=== PATIENT | female | born 1935 | race Caucasian/White ===

== ENCOUNTER → 2017-07-19 | Outpatient (CLI) | payer OTHER ==
[~2017-07-19] VITALS: Ht 165.1 cm; Wt 82.6 kg
[~2017-07-19] MED LIST: ASPIR 8181 MG PO; ATENOLOL 100MG100 MG PO; ATENOLOL 50MG T50 M1 PO; ATORVASTATIN CA80 MG PO; AZELASTINE137 MCG/0. NS; COUMADIN 5 MG TA5 M1 PO; LEVOTHYROXINE25 MCG PO; LIORESAL 10 MG10 MG PO; LIPITOR80 MG PO; OMEPRAZOLE40 MG PO; OXYCODONE HCL 55 MG PO; PACERONE 200 M200 M1 PO; PERCOCET 5-3251 EACH PO; VITAMIN D1000 UNI1 PO; ZANTAC 150MG T150 MG PO
--- NOTE | ~2017-07-19 | HPC ---
[facility] [place] [address] PAIN MANAGEMENT CONSULTATION Name: SANAZ VALERIO Room #: REG NORRIS CheryLenoraHansLenora#: [id number] Admission: 07/19/17 Attend Phys: Arnulfo Huber MD Discharge: Date of : 35 Report #: [id number] THIS REPORT FOR: //name// CC: Arnulfo Ramon MD DATE OF SERVICE: 07/19/2017 CHIEF COMPLAINT: Chronic neck pain. HISTORY OF PRESENT ILLNESS: The patient is here today in the clinic at the request of Dr. Greg Ramon to discuss her current medication management. She is somewhat concerned about her use of oxycodone because of what she has heard on the news. 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 She is living with her daughter. Previously living in [place], she moved here 2 years ago. In 2011, she was injured during the course of the knee surgery. She says that they dropped her head creating an injury to her neck. She complains of chronic pain in her neck and into her occiput. The pain radiates down into the trapezius. She has limited range of motion of the neck ____ causing pain in the level of 9-10/10. She describes it as gnawing, pulling, cramping, aching, and intermittent with movement. The patient was made blind also she says as a result of anesthesia that she was given during the same surgery. She did not go into details. She has rheumatoid arthritis diagnosed in 1959 and has recently been associated with Dr. Thomas who has been giving her Actemra injections once a month. She says that this helps with her pain and asked specifically which joints are involved and which are helped most, she says I am helped all over. The patient has atrial fibrillation and chronic kidney disease. She has a history of myocardial infarction. She should not be on anti-inflammatory drugs per her tax form preparer. MEDICATIONS: Currently taking Coumadin, Nexium, vitamin D, chloromycetin, amiodarone, Levoxyl, thyroid, cholesterol medication and oxycodone 5 mg twice a day with good improvement following her pain. SOCIAL HISTORY: Denies use of tobacco or alcohol. Living with her daughter. 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 She is retired. PAST SURGICAL HISTORY: Positive for three previous knee replacements, cataract surgery and ovarian cyst resection. She had a cholecystectomy and appendectomy [facility] [address] [place] [address] PAIN MANAGEMENT CONSULTATION Name: SANAZ VALERIO Room #: REG NORRIS AlmonteLenora#: [id number] Admission: 07/19/17 Attend Phys: Arnulfo Huber MD Discharge: Date of : 35 Report #: [id number] in the distant past. She has suffered with hypertension, heart disease, gastritis and osteoarthritis. She reports to me that she has chronic kidney disease stage 3. I do not have any of her glomerular filtration rate numbers or creatinine. She has been told not to take anti-inflammatory drugs. REVIEW OF SYSTEMS: Completed by the patient. I went over each of the positive responses including chest pain, nocturia and constipation. We discussed opioid related constipation. PHYSICAL EXAMINATION: GENERAL: The patient is pleasant and sharp female. She walks with a red tip white cane. VITAL SIGNS: Blood pressure 130/75, heart rate 52 and respirations 20. Her BMI is 30.3. 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 Mucous membranes are moist. Mouth is moist. She has multiple dental caries. NECK: Painful in all movements except for neck flexion. Extension, lateral tilt and rotational movements in all planes otherwise reproduce crepitus and pain in the occiput and radiating down the neck into the trapezius. She has localized myofascial pain and tenderness throughout the neck and the upper back. There is no scarring present. CHEST: Clear. CARDIAC: Rhythm was irregularly irregular. ABDOMEN: Soft. IMPRESSION: 1. Chronic intractable pain related to severe osteoarthritis and rheumatoid arthritis. 2. Use of opioid medication for management of chronic intractable pain. RECOMMENDATIONS: I fully support the use of modest doses of oxycodone for the patient. I think Dr. Ramon is providing this appropriately. We discussed the CDC guideline which is directing physicians to use medications wisely, not to discontinue using opioids altogether. If we calculate her current dose of oxycodone at 10 mg per day that is morphine milligram equivalency of 15. I explained to her where this sits in the guidelines. This is a low dose. She should safeguard her medications and she understands the importance of this. She should receive her medication from her primary care physician and no one else. We talked about perhaps increasing her dose to 15. This would still leave her morphine milligram equivalent at 22. As long as she has no side effects and provides her improvement in pain, I think this is the way I would manage her discomforts. She is not a good candidate for any sort of injection therapy. [facility] [address] [place] [address] PAIN MANAGEMENT CONSULTATION Name: SANAZ VALERIO Room #: DIANA CheryOly#: [id number] Admission: 07/19/17 Attend Phys: Arnulfo Huber MD Discharge: Date of : 35 Report #: [id number] Thank you for referral. She is not scheduled back to our clinic. By: [id number] Arnulfo Huber MD /nt
[2017-07-19 15:17] VITALS: BP 130/75
== END ==
LOC: PAIN 07:24
DX: G89.29 Other chronic pain (principal); M19.90 Unspecified osteoarthritis, unspecified site; M06.9 Rheumatoid arthritis, unspecified; F11.90 Opioid use, unspecified, uncomplicated

== ENCOUNTER 2018-02-02 15:18 | Inpatient (IN) | payer OTHER ==
[~2018-02-02] VITALS: Ht 165.1 cm; Wt 86.3 kg
--- NOTE | ~2018-02-02 | P ---
[facility] [place] [address] PROCEDURE REPORT Name: SANAZ VALERIO Room #: 450-P [facility] IN M.R.#: [id number] Admission: 02/02/18 Attend Phys: Greg Ramon MD Discharge: Date of : 35 Report #: [id number] THIS REPORT FOR: //name// CC: Greg Ramon MD BRIEF HISTORY: The patient is an 83-year-old woman with solid food dysphagia. She complains of reflux, which she describes as belching. A recent barium study suggested presbyesophagus. PREOPERATIVE DIAGNOSIS: Solid food dysphagia and reflux disease. POSTOPERATIVE DIAGNOSES: 1. Moderate erythematous antral gastritis. 2. Moderate Hoa esophagitis. 3. Dysphagia. MEDICATIONS: Deep sedation with propofol per anesthesia. SPECIMENS: 1. Biopsies of gastritis. 2. Brushing of esophagus to rule out Hoa. ESTIMATED BLOOD LOSS: 3 mL. PROCEDURE: EGD with biopsy and dilation of the esophagus over a guidewire. FINDINGS: Prior to propofol sedation, the procedure of upper endoscopy was discussed with the patient as well as potential risks and its complications. She indicates she understands and desires to proceed. DESCRIPTION OF PROCEDURE: With the patient in the left lateral decubitus position, the Olympus video endoscope was inserted into the cervical esophagus and advanced under direct vision to the esophagus. Examination of this organ through its entire length revealed intact esophageal mucosa; however, there was noted to be whitish plaque material throughout the esophagus consistent with a Hoa esophagitis. It is noted she does take steroids for her rheumatoid arthritis. Brushings were obtained. The intervening mucosa was unremarkable and intact. No ulcerations or erosions were seen. No neoplastic lesions were seen. Corea's mucosa was not seen within the limitations of the Hoa esophagitis. The scope was advanced in the stomach, which was examined on end view as well as retroflexed views. The stomach was empty. No retained solids or liquids in the stomach. Upon retroflexion, no abnormalities were seen. No mass lesions were seen in the cardia. Examination of the distal stomach revealed a linear erythematous gastritis to a moderate degree. No ulcers were seen. Biopsy was taken of the gastritis. The pylorus, duodenal bulb and postbulbar duodenal sweep were all inspected and noted to be within normal [address] [address] PROCEDURE REPORT Name: SANAZ VALERIO Room #: 450-P [facility] IN M.R.#: [id number] Admission: 02/02/18 Attend Phys: Greg Ramon MD Discharge: Date of : 35 Report #: [id number] limits. At that point, the scope was withdrawn. As we withdrew the scope, a guidewire was inserted into the duodenum and the scope was withdrawn over the wire. We then passed a 40-Hungarian Savary dilator over the wire without difficulty. The patient tolerated the procedure well. DISPOSITION: The patient with dysphagia. I did not see definite stricturing, which she is dilated as noted above. 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 Also, she has a neck deformity, which also may be a problem with regards to swallowing especially since solids seem to be hanging up to the level of the suprasternal notch. If she has benefit from ____ and has recurrent symptoms, dilation can be repeated on an as needed basis. However, she does not have benefit, continued dilation will likely not be too helpful for the patient. Also with regards to reflux disease, I did not see erosive changes. She has been on twice daily [id number] Nexium, which she thinks helps to some degree. We will try twice daily pantoprazole. Also, start Diflucan for her Hoa esophagitis. Hoa esophagitis may be an ongoing problem with prison use of steroids. <ELECTRONICALLY SIGNED> By: Celso Gong MD 02/13/18 [id number] Celso Gong MD /nt
--- NOTE | ~2018-02-02 | PATH ---
[facility] [address] [place] [address] PATHOLOGY RPT PROCEDURE Name: SANAZ VALERIO Room #: 450-P ADM IN M.R.#: [id number] Admission: 02/02/18 Date of : 35 Discharge: Report #: [id number] Path Case #: [id number] Note [facility] Accession Number: [id number] TESTS RESULT FLAG UNITS REF RANGE LAB Clinician Provided Cytology Information No. of containers..01 Other (Miscellaneous) Source: ESOPHAGEAL BRUSH DIAGNOSIS: 02 ESOPHAGEAL BRUSH NEGATIVE FOR MALIGNANT CELLS. REACTIVE SQUAMOUS CELLS ARE PRESENT. FUNGAL ORGANISMS MORPHOLOGICALLY CONSISTENT WITH "PRAVIN" SPECIES ARE PRESENT. SCANT CELLULARITY. Signed out by: Kavon Sauceda MD, Pathologist NPI- [id number] Performed by: Jono Max, Special Education Assistant ([facility]) Gross description: 01 10ML, NONE, CLEAR /LCS FLAG LEGEND: L-Low Normal,H-High Normal,LL-Alert Low,HH-Alert High <-Panic Low,>-Panic High,A-Abnormal,AA-Critical Abnormal Performed at: [address] [place] [address] Vickey Connelly MD, [address] [address] Tarsha Plummer MD, Specimen Comment: A courtesy copy of this report has been sent to Specimen Comment: [phone]. Specimen Comment: Report sent to Performed at: [address], [place], [place] [id number] MD Vickey Connelly MD Phone: [phone]
--- NOTE | ~2018-02-02 | EKG ---
[address] [place] [address] ELECTROCARDIOGRAM REPORT Name: SANAZ VALERIO Room #: 450-P ADM IN M.R.#: [id number] Admission: 02/02/18 Attend Phys: Greg Ramon MD Discharge: Date of : 35 Report #: [id number] THIS REPORT FOR: //name// [facility] ED Test Date: 2018-02-02 Test Time: 17:32:35 Pat Name: SANAZ VALERIO Department: Room: 450 Gender: F Bioinformatics Scientist: JAMES : 1935 Requested By: Mary Rose Order Number: [id number] MD: Saúl Landin Measurements Intervals [place] Rate: 126 P: [place]: QRS: -28 QRSD: 84 T: 56 QT: 321 QTc: 465 Interpretive Statements Atrial fibrillation with rapid V-rate Borderline left axis deviation Compared to ECG 02/01/2016 19:03:06 Sinus rhythm no longer present Electronically Signed On 02-04-2018 9:03:46 CDT by Saúl Landin [email or web address] <ELECTRONICALLY SIGNED> By: Saúl Landin MD, [facility] 02/04/18 0903 31 31 Saúl Landin MD, [facility] /EPI
--- NOTE | ~2018-02-02 | H ---
[facility] [place] [address] [place] [address] HISTORY AND PHYSICAL Name: SANAZ VALERIO Room #: 450-P [facility] IN M.R.#: [id number] Admission: 02/02/18 Attend Phys: Greg Ramon MD Discharge: 02/14/18 Date of : 35 Report #: [id number] THIS REPORT FOR: //name// CC: Greg Brooke Martha Stevenson DATE OF SERVICE: 02/02/2018 CHIEF COMPLAINT: Progressive lethargy, confusion and dyspnea on exertion. HISTORY OF PRESENT ILLNESS: The patient presents after a week of progressive dyspnea with exertion and intermittent confusion. In the Emergency Room, she was found to have diffuse bilateral mixed alveolar and interstitial ground-glass opacities, predominantly in the upper lobes consistent with multifocal pneumonitis. There is an additional area in the right middle lobe suggestive of additional pneumonitis or possibly pneumonia. She was also hypoxic and required admission for further evaluation and therapy. She also had rapid atrial fibrillation. PAST MEDICAL HISTORY: Beginning atrial fibrillation May 2015. The amiodarone was started with initial good response. However, she presented to Dr. Lazo's office on 12/24/17 complaining of increased dyspnea with exertion and it sounded to like she was having either chronic atrial fibrillation with rapid response or more frequent episodes of atrial fibrillation. During his entire visit, she was in atrial fibrillation. At rehana time, he increased the amiodarone. But she did not get better with the increased amiodarone, but this last week became progressively worse. In the Emergency Room, the lung abnormalities were evident on the plain chest x-ray and confirmed with a CT scan. She required admission for further evaluation and therapy. PAST MEDICAL HISTORY: She has been treated for rheumatoid arthritis for many, many years treated with biologic immunosuppressives. She is currently taking Actemra monthly from Dr. Thomas with mostly good to excellent relief of her pain. Occasionally, he has added steroids to the IV infusion, but none in the last 3 months. She is perhaps 1 or 2 weeks late for her current Actemra infusion because of scheduling conflicts with her caregivers. She has severe left-sided torticollis that is much better than it was when she first came to [place] several years ago. after having received treatment, It is presumed to be from her termination clerk metoclopramide, which was discontinued. She has chronic severe back pain treated with an average of 3 oxycodone 5 mg [facility] [address] [place] [address] HISTORY AND PHYSICAL Name: SANAZ VALERIO Room #: 450-P [facility] IN [facility].#: [id number] Admission: 02/02/18 Attend Phys: Greg Ramon MD Discharge: 02/14/18 Date of : 35 Report #: [id number] tablets daily that allows her to be reasonably active. The pain is also in her rheumatoid arthritic joints as well as in her back. The past metocolpramide was for severe reflux. An anterior wall ME in 1999 with stent to the LAD in 2006 and the left circumflex. Diastolic heart failure and atrial fibrillation began in 05/2015 and until recently had been maintained in sinus rhythm with amiodarone. She has hypertension. She has had 3 knee replacements, cholecystectomy, appendectomy, cataract extractions and an ovarian cyst has been removed. MEDICATIONS: Oxycodone 5 mg 2 or 3 daily as needed for pain, atorvastatin 80 mg in the evening, atenolol 50 mg in the morning, amiodarone 200 mg daily, levothyroxine doses varied and that is earlier this year, it was accidentally left off of her list, but she recently restarted it several weeks ago 25 mcg once daily, ranitidine 150 mg 2 tablets at bedtime, warfarin on an adjusted dose with 5 mg tablets, most recently taking one-half of a tablet (2.5 mg) daily and skipping Mondays and skipping Fridays, aspirin 81 mg daily, D3 1000 units twice daily, melatonin 3 mg tablets -04/10 at bedtime, folic acid 800 mcg daily, stool softener 100 mg twice daily, csaq-qxq-hkuaamz Nexium 22 mg 2 pills twice daily, intermittently now only as needed, diclofenac sodium ointment 4 grams to several joints 4 times a day, mupirocin 2%, Bactroban ointment twice daily and bedtime to her nares, azelastine 0.1% two nose sprays twice daily, fluticasone nose spray 2 sprays twice daily, Actemra infusion monthly from Dr. Thomas with an occasional steroid added if she had been more symptomatic, and BenGay topically to various joints. ALLERGIES: METOCLOPRAMIDE CAUSED TORTICOLLIS. SHE IS ALLERGIC TO SULFA. REVIEW OF SYSTEMS: In addition to the HPI, her right wrist rheumatoid arthritis symptoms have been flaring recently. PHYSICAL EXAMINATION: GENERAL: Shows an 83-year-old female appearing her stated age. HEENT: She complains of dry mouth and indeed the oral mucosa appears mildly dry. There does not appear to be thrush present. NECK: Negative. LUNGS: The breath sounds in the bases are diminished, in the mid posterior lung zones cackles are heard on both sides, which clear in the upper lung zones. CARDIOVASCULAR: S1, S2 are normal and the rhythm is irregularly irregular and rapid approximately 110-120. ABDOMEN: Soft and nontender. EXTREMITIES: There is only mild pedal edema present on exam. [facility] [address] [place] [address] HISTORY AND PHYSICAL Name: SANAZ VALERIO Room #: 450-P [facility] IN .R.#: [id number] Admission: 02/02/18 Attend Phys: Greg Ramon MD Discharge: 02/14/18 Date of : 35 Report #: [id number] NEUROLOGIC: Screening neurological examination shows no focal deficits. She does appear to repeat herself occasionally during the exam and interview. LABORATORY DATA: Her sed rate and C-reactive protein are very high at 115 and 172 respectively. Her white count is elevated at 13,000 with 83% segmented neutrophils left shift. Monocytes are slightly elevated. Troponin is negative. Her free T4 is low at 0.6. Her free T3 is low at 2.06 and her TSH is high at 29.42. This indicates she is not being over replaced and that her thyroid medication is not driving her rapid atrial fib. There are a few red blood cells and leukocytes in her urine along with white blood cell clumps. On 2 liters of nasal cannula oxygen, her pH is 7.48, her pCO2 is down to 30 and her pO2 was low at 62.9. ASSESSMENT: 1. Diffuse bilateral mixed alveolar and interstitial ground-glass opacities in the upper lobes for a multifocal pneumonitis with an additional area of pneumonitis in the right middle lobe. Changes present on imaging and on exam. 2. New hypoxia. 3. Permanent rapid atrial fibrillation. RVR. 4. Active rheumatoid arthritis 1-2 weeks overdue for the Actemra infusion. 5. Dry mouth. 6. Flare of rheumatoid arthritis at the right wrist joint with discomfort. 7. 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 8. Other medical problems as mentioned above. 9. Hypothyroid slightly underdosed. PLAN: The case was discussed with Dr. Tamez of the Infectious Disease Service, who was concerned about an opportunistic infection in her lungs and recommends bronchoscopy to evaluate for opportunistic infections, especially pneumocystis carinii. Discussed with the Cardiology Service and the amiodarone is being discontinued, now that the evaluation has been made that she is in permanent atrial fibrillation. Rate control will be achieved by continuing her beta mariam and adding 240 mg sustained release diltiazem, Cardizem-CD. Rheumatology consultation for an opinion as to how much of her elevated inflammatory markers is due to her rheumatoid arthritis, or an opportunistic infection in her lungs, or inflammation from the amiodarone side effects on the lung tissue. [facility] [address] [place] [address] HISTORY AND PHYSICAL Name: SANAZ VALERIO Room #: 450-P [facility] IN .R.#: [id number] Admission: 02/02/18 Attend Phys: Greg Ramon MD Discharge: 02/14/18 Date of : 35 Report #: [id number] She wishes resuscitation, and has discussed with her family when to cease support if the resuscitation results are less than ideal. <ELECTRONICALLY SIGNED> By: Greg Ramon MD 02/14/18 2320 0050 0240 Greg Ramon MD /nt
--- NOTE | ~2018-02-02 | O ---
[facility] [place] [address] [place] [address] OPERATIVE REPORT Name: SANAZ VALERIO Room #: 450-P ADM IN M.R.#: [id number] Admission: 02/02/18 Attend Phys: Greg Ramon MD Discharge: Date of : 35 Report #: [id number] THIS REPORT FOR: //name// CC: Greg Ramon MD TYPE OF PROCEDURE: Diagnostic bronchoscopy. CLINICAL HISTORY: An 83-year-old white female with long history of rheumatoid arthritis, now with bilateral infiltrates. Diagnostic bronchoscopy performed to rule out infection including opportunistic infections as the patient is on immunosuppressant therapy. POSTOPERATIVE DIAGNOSIS: Normal airways. DESCRIPTION OF PROCEDURE: Following obtaining consent and risks and benefits had been explained to the patient, which include infection, bleeding, pneumothorax, the procedure performed in the endoscopy suite. The patient received 2% aerosolized lidocaine to the upper airways. She also received 2 mg of Versed along with 50 mcg of fentanyl. Then, a flexible fiberoptic bronchoscope was then introduced through the left naris without difficulty. The epiglottis was normal. Vocal cords were normal. Trachea was normal, fortino was normal. Left mainstem bronchus, left upper lobe and left lower lobe were normal. Right mainstem bronchus, right upper lobe, right middle lobe and right lower lobe were grossly unremarkable. Bronchoalveolar lavage was performed at the proximal apical segment of the right upper lobe. Seven aliquots of 20 mL normal saline was used. We had adequate return. The specimen was divided into 2 specimen cups. Specimen cup #1 will be sent for microbiologic studies including AFB, fungal, Gram stain culture and sensitivity. Specimen cup #2 will be sent for cell count with differential. Fluid for cytology will also be sent. Overall, the patient tolerated the procedure well with no complications noted. <ELECTRONICALLY SIGNED> By: Temo Stevenson MD 02/08/18 1611 [id number] 55 Temo Stevenson MD /nt
--- NOTE | ~2018-02-02 | HC ---
[facility] [place] [address] [place] [address] CONSULTATION Name: SANAZ VALERIO Room #: 450-[facility] IN M.R.#: [id number] Admission: 02/02/18 Attend Phys: Greg Ramon MD Discharge: 02/14/18 Date of : 35 Report #: [id number] THIS REPORT FOR: //name// CC: Greg Ramon HISTORY OF PRESENT ILLNESS: The patient is an 83-year-old female, presently usually followed by Dr. Ramon, primary, and Dr. Lazo, my partner, for paroxysmal AFib. She presents with some progressive dyspnea and shortness of breath. She had seen Dr. Lazo a month ago in the office and thought that she was having more episodes of paroxysmal AFib. He had increased the amiodarone. But she presents in AFib with a rapid ventricular response. The original EKG has been in atrial fibrillation/flutter with rapid ventricular response since her admission yesterday. She became progressively more short of breath and dyspneic. Recent workup, an echo a month ago revealed LV function normal, mild to moderate aortic insufficiency. She was asymptomatic for the AFib and Dr. Lazo thought this was more paroxysmal, thus increased the dose of amiodarone. Now the question arises whether this could be amiodarone toxicity and I suspect it is not, probably the AFib RVR is making her more short of breath and symptomatic. However, no current indication to continue , I suspect we would then opt for rate control and anticoagulation. I believe she would be asymptomatic if the rate was controlled. She is currently on amiodarone, was 400, had been 200, atenolol 50, we need diltiazem or something here, atorvastatin, Nexium, Colace, Flonase, Synthroid, oxycodone, Zantac, and Coumadin. PAST MEDICAL HISTORY: Positive for the paroxysmal AFib, moderate aortic valve insufficiency, remote infarct, bladder surgery, appendectomy, cataract, ovarian cyst. She had a stent placed in the circumflex artery in 2006 in [place] and angioplasty to the LAD in 1999, negative nuclear stress test in 11/2015, chronic pain. FAMILY HISTORY: Father had rheumatic fever. SOCIAL HISTORY: She lives with a couple of her children. She is relatively independent. No prior tobacco or alcohol use. REVIEW OF SYSTEMS: Essentially negative except for stated above. ALLERGIES: SULFA. PHYSICAL EXAMINATION: GENERAL: She is legally blind. She does not appear to be in any significant distress. She is mildly tachycardic. VITAL SIGNS: Pulse is currently 120s, blood pressure 114/60. HEENT: Eyes reveal xanthelasmas. Pharynx is clear. NECK: Shows preserved upstrokes without JVD or bruits. LUNGS: Clear. CARDIAC: Rate and rhythm, S1, S2 irregularly irregular, tachycardic. There is [address] [address] CONSULTATION Name: SANAZ VALERIO Room #: 450-[facility] IN M.R.#: [id number] Admission: 02/02/18 Attend Phys: Greg Ramon MD Discharge: 02/14/18 Date of : 35 Report #: [id number] a diastolic blowing murmur appreciated in upper sternal border. ABDOMEN: Soft. No HSM or abdominal bruit. EXTREMITIES: Reveal trace edema. Distal pulses were intact. NEUROLOGIC: Nonfocal. SKIN: Warm and dry without xanthoma or ulcer. MUSCULOSKELETAL: Generalized arthritic changes. I did not ambulate her. NEUROLOGIC: She is legally blind. IMAGING: A CT scan shows mixed alveolar and interstitial ground glass opacities, possible pneumonitis upper lobes. LABORATORY DATA: Sodium 130, creatinine 1.4, potassium 4.0. Liver function tests were normal. BNP 5200, CRP elevated at 172. Troponins negative. INR 3.2. H and H 12 and 35, white count 13.8. ASSESSMENT: 1. Atrial fibrillation with rapid ventricular response, appears to be more persistent than paroxysmal. 2. Hypoxemia, possible pneumonitis as described on CT scan. 3. Mild systolic volume overload situation, probable secondary to atrial fibrillation with rapid ventricular rate, although echo relatively normal last month. 4. Hypertension. 5. History of rheumatoid arthritis. 6. Chronic pain. RECOMMENDATIONS AND PLAN: No clear evidence that this would be amiodarone related, but I would favor discontinuing the amiodarone in light of the fact that it does not appear to be maintaining sinus rhythm. We would continue the current regimen. We will add diltiazem for rate control, 240 p.o., to the atenolol, discontinue the amiodarone and Lasix IV today. Maybe some slight volume overload here. We will discuss with Dr. Lazo who will resume her cardiac care tomorrow and Dr. Ramon. Continue to monitor her and continue anticoagulation. At this point, it would be better to favor rate control and anticoagulation. I do not think there is a strong need to repeat an echo at this time. We will follow with you. Thank you for asking me to assist in care of the patient. <ELECTRONICALLY SIGNED> By: Mariusz Rosenthal MD, FACC 02/18/18 1934 [id number] [id number] Mariusz Rosenthal MD, FACC /nt
--- NOTE | ~2018-02-02 | D ---
[facility] [place] [address] [place] [address] DISCHARGE SUMMARY Name: SANAZ VALERIO Room #: 450-P [facility] IN M.R.#: [id number] Admission: 02/02/18 Attend Phys: Greg Ramon MD Discharge: 02/14/18 Date of : 35 Report #: [id number] THIS REPORT FOR: //name// CC: [facility] Kit STEVENSON MD DATE OF SERVICE: 02/14/2018 SUMMARY OF HISTORY AND PHYSICAL: The patient had experienced slow progressive dyspnea on exertion and reduced exercise tolerance when she went to see Dr. Lazo in mid December. She had paroxysmal atrial fibrillation for years, controlled with amiodarone, but on that visit, she was in atrial fib the entire visit. He increased the dose of amiodarone, but over the next several weeks, her shortness of breath with exertion became worse. She finally presented to the Emergency Room where she was found to be hypoxic to have new bilateral alveolar and interstitial ground glass opacities in the upper lobes consistent with multifocal pneumonitis with an area in the right middle lobe as well. Admission was indicated for respiratory failure. She also had atrial fibrillation with rapid ventricular response and some findings suggestive of heart failure secondary to her rapid AFib. SUMMARY OF HOSPITAL COURSE: On admission, she was seen by Dr. Sanchez Tamez of the infectious disease service, Dr. Bay Marsh of the pulmonary service, Dr. Edwardo Thomas of rheumatology and Dr. Kit Lazo of Cardiology. The patient's interstitial ground glass and alveolar pneumonitis had developed over the previous month or 2 because the findings were not present on a PA and lateral chest x-ray of 11/09/2017. Working differential was broad: Amiodarone lung toxicity, interstitial pulmonary disease from progressive rheumatoid arthritis, heart failure from rapid ventricular response to atrial fibrillation, and opportunistic atypical infection from immunosuppression. It was decided that her a fib had become permanent, and rate control was the theraputic target. With the possibility that she had lung toxicity from amiodarone which might improve with discontinuing it, and no benefit to continuing it, the amiodarone was stopped. Treatment was also broad with IV diuretics, empiric antibiotics and high dose intravenous Solu-Medrol corticosteroids. She was given oxygen and bronchodilator treatments as well. Over the next 5-6 days, her breathing improved. She was able to be weaned off of oxygen. A bronchoalveolar lavage showed the airways to be relatively clean according to the transitions manager rn, Dr. Temo Stevenson. Her corticosteroid doses were steadily tapered, and she was discharged on prednisone 20mg twice daily at the request of her petroleum refinery operator, [address] [address] DISCHARGE SUMMARY Name: SANAZ VALERIO Room #: 450-[facility] IN M.R.#: [id number] Admission: 02/02/18 Attend Phys: Greg Ramon MD Discharge: 02/14/18 Date of : 35 Report #: [id number] Edwardo Thomas. Multiple studies from the bronchoalveolar lavage, but not all, returned prior to discharge and were negative. Some studies were still pending at the time of discharge. Initially, there was a concern that she had developed an increase in her diastolic heart failure because of the rapid atrial fibrillation, and she was diuresed. However, her creatinine went up and the diuretic was held. There was no increase in dyspnea. The creatinine then drifted back down to baseline. Creatinine was 1.3 on admission, but with diuresis, quickly went up to 2.0. When the diuretic was stopped, it drifted down to 1.3. When diuresis was resumed because of edema in the legs, it was 1.5 on the day of discharge. With progressive days of corticosteroids, she developed hyponatremia to a serum sodium of 126, and as the steroids were reduced further, the sodium improved approaching normal of 137. The steroids led to hyperglycemia with blood sugars as high as 319, but they generally fell to 150-180 fasting towards the end of the hospital stay. She developed a cold sore on the left corner of her mouth that was minimally symptomatic and was not treated. She reported having difficulty swallowing some foods for some period of time and was actually choking on her chicken and rice when Dr. Edwardo Meyer watched her eating dinner towards the end of her hospital stay. 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 A regular diet was recommended with the following swallow precautions: Chew thoroughly, effortful swallows, position fully upright and to stay upright after finishing her meal. Her diet was regular with all liquids. Barium swallow esophagram, upper GI was limited because of her inability to stand for a prolonged period of time as well as exaggeration of kyphosis and thoracolumbar scoliosis limiting positioning. Multiple tertiary contractions were seen consistent with presbyesophagus. There was no obvious esophageal reflux seen during the exam. A hiatal hernia was looked for and not found. The following day, she underwent an EGD by Dr. Celso Gong and showed moderate erythematous antral gastritis, moderate Hoa esophagitis as well as dysphagia. The esophagus was dilated over a guidewire. The infectious disease application packaging consultant suggested fluconazole 200 mg 1 dose only was adequate to treat the esophageal candidiasis. If fluconazole were needed on prolonged treatment, would have exposed the patient to a possible interaction between fluconazole and her oxycodone, which could lead to increased levels of [facility] [address] [place] [address] DISCHARGE SUMMARY Name: SANAZ VALERIO Room #: 450-P [facility] IN M.R.#: [id number] Admission: 02/02/18 Attend Phys: Greg Ramon MD Discharge: 02/14/18 Date of : 35 Report #: [id number] oxycodone. A gastric emptying study was performed on the day of discharge and was abnormally prolonged. Caveat is that there had been IV fentanyl given in the middle of the night while the patient was n.p.o. in preparation for the gastric emptying study, and it is well known that narcotics can cause gastric emptying difficulties, and this is part of the concern for ordering the study. There was some softening of the steroid-induced leg edema in response to IV Lasix prior to discharge. It was also noted that the baseline markedly elevated inflammatory studies dropped significantly part way through the hospital stay in response to treatment. LABORATORY DATA: On admission, the creatinine was 1.3, ian to 2.0 early in the hospital stay in response to diuresis, dropped to 1.2 when diuresis was discontinued, and then ian again to 1.5 in response to resumption of diuresis for the swelling in the legs. Blood sugars varied between 85 and 319 and ian in the middle of the hospital stay when the corticosteroids were at the maximum and then fell slightly as the steroid doses were tapered. Free T4 was low at 0.6. Free T3 was low at 2.06 and TSH was high at 29.142. Her levothyroxine dose was increased by adding 3 more tablets per week. On 02/03/2018, sed rate was 115 and dropped to 109 on 02/09/2018. C-reactive protein was 172 on 02/03/2018 and dropped to 34.9 on 02/09/2018. INR was 2.7 on admission and ian to 3.8 without taking more of warfarin. Low dose of vitamin K was given, which controlled it. WBCs on admission were 13,000 with 13,800 the highest, and in the middle of the hospital stay, ian to 17.1 from steroids , but then dropped. Hemoglobin was 11.5 on admission. The differential showed a mild left shift of 83.6% segmented neutrophils. Hemoglobin remained stable through the hospital stay. MRSA PCR was negative. Respiratory viral panel was negative including influenza A and B. Urine culture grew 50,000 E. coli that were covered by the levofloxacin antibiotic empirically given for the pneumonitis. After several days, arterial blood gas on 2 liters by nasal cannula showed a pH of 7.5, pCO2 of 29 and a pO2 of 129.9. At the time of discharge, there was Hoa albicans growing from the BAL specimen, but the other cultures were negative. Esophageal brush showed fungal organisms consistent with Hoa and was otherwise negative. Cytology was negative for malignant cells and GMS stain was negative for fungus (this [facility] [address] [place] [address] DISCHARGE SUMMARY Name: SANAZ VALERIO Room #: 450-P [facility] IN M.R.#: [id number] Admission: 02/02/18 Attend Phys: Greg Ramon MD Discharge: 02/14/18 Date of : 35 Report #: [id number] includes the silver stain for pneumocystis, which was negative). GMS stain for fungus on the gastric biopsy was also negative showing mild chronic reactive gastropathy. There was, however, a squamous mucosa showing numerous fungal hyphal elements and yeast. ASSESSMENT: 1. Pneumonitis of the upper and right middle lobe on admission with hypoxia responded to high dose steroids as well as empiric antibiotics. The diagnosis has still not been determined. The chest x-ray showed interval improvement in the right middle and right upper lobe and left upper lobe. Crackles present on admission resolved. 2. 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 3. Of note, there was no esophageal reflux and a hiatal hernia was looked for and not seen on the studies. 4. Rheumatoid arthritis flare with back and right wrist pain, responded to the corticosteroids. 5. Side effects to corticosteroids included hyperglycemia, hyponatremia, and soft edema fluid in the lower extremities. 6. Atrial fibrillation, is now presumed permanent. Amiodarone was discontinued and rate control was instituted. 7. Hypothyroid was under dosed, and the dose slightly increased in the hospital. 8. Chronic back pain from kyphoscoliosis. 9. Neck pain, was made worse from the recliner she had to sleep in while she was in the hospital. 10. Weakness from her illness and extra time at bed rest. 11. Other medical problems as in the history and physical. 12. Fibromyalgia a possible condition. PLAN: The patient is transferred to a care home facility for therapies and strengthening. She is transferred on a loop diuretic with daily weights and DONNY hose to monitor the response of her leg edema to the loop diuretic. She is to be followed up soon by Dr. Edwardo Thomas and her transitions manager rn, Dr. Temo Stevenson to consider resumption of her rheumatoid arthritis therapy. She remains on warfarin for anticoagulation, and 81 mg aspirin was resumed because of her history of coronary artery disease. She did derive some benefit to the use of diclofenac gel for topical pain relief. To chew thoroughly, effortfull swallowing, position upright, and stay upright after meals. accuchecks. ADDENDUM: The patient continues to request a full code blue. She states that [facility] [address] [place] [address] DISCHARGE SUMMARY Name: SANAZ VALERIO Room #: 450-P DIS IN M.R.#: [id number] Admission: 02/02/18 Attend Phys: Greg Ramon MD Discharge: 02/14/18 Date of : 35 Report #: [id number] she has discussed with her family members on what her wishes would be, should resuscitation be necessary in outcome be less than ideal. By: 2318 0036 Greg Ramon MD /nt
--- NOTE | ~2018-02-02 | HC ---
[facility] [place] [address] [place] [address] CONSULTATION Name: SANAZ VALERIO Room #: 450-P ADM IN M.R.#: [id number] Admission: 02/02/18 Attend Phys: Greg Ramon MD Discharge: Date of : 35 Report #: [id number] THIS REPORT FOR: //name// CC: Greg Ramon DATE OF SERVICE: 02/03/2018 ATTENDING PHYSICIAN: Dr. Greg Ramon. REASON FOR CONSULTATION: Pulmonary infiltrates. HISTORY OF PRESENT ILLNESS: The patient is an 83-year-old white woman with longstanding history of rheumatoid arthritis, on treatment with Actemra (tocilizumab) an interleukin [address] Ramon for many years, at least more than 3 since she had been on this medication even before moving to the [place] area. The patient had rheumatoid arthritis in her early 20s and she is admitted through the Emergency Room with a history of breathlessness, but no significant fevers to speak about. PAST MEDICAL HISTORY: Knee replacement, cholecystectomy, appendectomy, cataract surgery, ovarian cyst removal. DRUG ALLERGIES: SULFA. MEDICATIONS: The patient is on treatment at home with warfarin, atorvastatin, amiodarone, azelastine, oxycodone IR, levothyroxine, aspirin, cholecalciferol, atorvastatin, atenolol, and receiving infusions of Actemra monthly per Dr. Thomas. SOCIAL HISTORY: See H and P, old record. FAMILY HISTORY: See H and P, old record. REVIEW OF SYSTEMS: As above. PHYSICAL EXAMINATION: GENERAL: A well-developed nontoxic looking woman. VITAL SIGNS: Temperature 97.2, pulse 79, respirations 14, BP 115/47, height 5 feet 5 inches, weight 190.5 pounds. O2 saturation 92% on room air, 92% on 2 liters. HEENMT: Within range. NECK: Supple. LUNGS: Few basilar crackles. HEART: S1, S2. No gallop or murmur. BREASTS: Deferred. ABDOMEN: Soft, no masses or megaly. EXTREMITIES: No clubbing, cyanosis. [facility] [address] [place] [address] CONSULTATION Name: SANAZ VALERIO Room #: 450-P [facility] IN M.R.#: [id number] Admission: 02/02/18 Attend Phys: Greg Ramon MD Discharge: Date of : 35 Report #: [id number] NEUROLOGIC: Grossly within normal limits. LABORATORY DATA: Sodium 130, potassium 4, BUN 21, creatinine 1.4, total bilirubin 3.5 mg/dL. On 11/09/2017, it was 1.7 mg/dL. GGTP was elevated in 2015 of 569. We will repeat that now. Albumin 3.1 g/dL. NT-proBNP 5213. Protime 31.8 seconds, INR 3.2. WBC 13.8, hemoglobin 12.2, platelets 177,000. White blood cell count differential revealed 81% segmented neutrophils. Urinalysis revealed trace protein, few wbc's in clumps, bacteriuria and hyaline casts. ABGs revealed pH of 7.48, pCO2 of 30, pO2 of 62, bicarbonate 22.2. Lactate 1.34. These set of gases on 2 liters oxygen nasal cannula. MICROBIOLOGY DATA: Nasopharyngeal smear for influenza antigens pending. Urine culture pending. Blood cultures negative so far. RADIOLOGY EVALUATION: A CT scan of the chest without contrast revealed bilateral mixed pulmonary infiltrates, possible multifocal pneumonitis. ASSESSMENT: 1. Bilateral pulmonary infiltrates, question etiology, must rule out opportunistic infection versus amiodarone lung toxicity. 2. Rheumatoid arthritis on Actemra. 3. Abnormal liver function tests, question secondary to Actemra. SUGGESTIONS: Recommend ESR, CRP, procalcitonin. MRSA by PCR. Continue Levaquin. Upper respiratory viral panel by PCR. May need bronchoscopy. Since the patient is not febrile, possibility of amiodarone toxicity is high on the list, but obviously she will need bronchoscopy to rule out opportunistic infection. Dr. Ramon, thank you for requesting my suggestions. <ELECTRONICALLY SIGNED> By: Sanchez Tamez MD 02/04/18 1026 0847 2219 Sanchez Tamez MD /nt
--- NOTE | ~2018-02-02 | PATH ---
[facility] [place] [address] PATHOLOGY RPT PROCEDURE Name: FLORECITA VALERIO Room #: 450-P ADM IN M.R.#: [id number] Admission: 02/02/18 Date of : 35 Discharge: Report #: [id number] Path Case #: [id number] [facility] Accession Number: [id number] . 01 Material submitted: . GASTRITIS R/O H PYLORI . 01 Clinical history: . Pre-OP DX: Dysphagia Post-OP DX: Gastritis, elieser esophagitis, dysphagia . 02 Diagnosis: Squamous and gastric mucosa "gastric biopsy". - The gastric mucosa reveals mild chronic reactive gastropathy. - There is also a fragment of squamous mucosa that reveals numerous fungal hyphal elements and yeast. . The immunoperoxidase stain for Helicobacter pylori is negative. The GMS stain for fungus is positive. . (SHA:at;) QTA/02/13/2018 . 02 Electronically signed: . Kavon Sauceda MD, Pathologist NPI- [id number] . 01 Gross description: . Received in formalin labeled "Florecita Valerio, gastritis, rule out H. pylori," are multiple segments of driver soft tissue measuring 1.5 x 0.4 x 0.2 cm in aggregate dimensions. The specimen is filtered and entirely submitted in cassette A1. (TSD; 02/12/2018) TOB/TOB . 02 Pathologist provided ICD-10: K31.9 . 02 CPT . 735318, R13167, 467665 Specimen Comment: A courtesy copy of this report has been sent to Specimen Comment: [phone], . Specimen Comment: Report sent to / DR REED Specimen Comment: A duplicate report has been generated due to demographic updates. Performed at: 01 [facility] [place] [address] PATHOLOGY RPT PROCEDURE Name: FLORECITA VALERIO Room #: 450-P ADM IN M.R.#: [id number] Admission: 02/02/18 Date of : 35 Discharge: Report #: [id number] Path Case #: [id number] [address] [facility] [address], [place] [id number] MD Vickey Connelly MD Phone: [phone] Performed at: 02 [facility] [address] [place], [place] [id number] MD Tarsha Plummer MD Phone: [phone]
--- NOTE | ~2018-02-02 | PATH ---
[facility] [address] [place] [address] PATHOLOGY RPT PROCEDURE Name: SANAZ VALERIO Room #: 450-P ADM IN M.R.#: [id number] Admission: 02/02/18 Date of : 35 Discharge: Report #: [id number] Path Case #: [id number] Note [facility] Accession Number: [id number] TESTS RESULT FLAG UNITS REF RANGE LAB Clinician Provided Cytology Information No. of containers..01 Other (Miscellaneous) Source: BAL DIAGNOSIS: 02 BAL NEGATIVE FOR MALIGNANT CELLS. NORMAL BRONCHIAL CELLS AND MACROPHAGES ARE PRESENT. THIS INTERPRETATION INCLUDES EVALUATION OF A CELL BLOCK. COMMENT; GMS STAIN IS NEGATIVE FOR FUNGUS. Signed out by: 02 Kavon Sauceda MD, Pathologist NPI- [id number] Performed by: 01 Nadege Garner, Data Abstractor ([facility]) Gross description: 01 7ML, PINK, CLOUDY /LCS FLAG LEGEND: L-Low Normal,H-High Normal,LL-Alert Low,HH-Alert High <-Panic Low,>-Panic High,A-Abnormal,AA-Critical Abnormal Performed at: [address] [place] [address] Vickey Connelly MD, [address] [address] Tarsha Plummer MD, Specimen Comment: A courtesy copy of this report has been sent to Specimen Comment: [phone]. Specimen Comment: Report sent to Specimen Comment: A duplicate report has been generated due to demographic updates. Performed at: [address], [place], [place] [id number] MD Vickey Connelly MD Phone: [phone]
--- NOTE | ~2018-02-02 | EKG ---
[address] [place] [address] ELECTROCARDIOGRAM REPORT Name: SANAZ VALERIO Room #: 450-P ADM IN M.R.#: [id number] Admission: 02/02/18 Attend Phys: Greg Ramon MD Discharge: Date of : 35 Report #: [id number] THIS REPORT FOR: //name// [facility] Test Date: 2018-02-03 Test Time: 09:34:36 Pat Name: SANAZ VALERIO Department: Room: 450 Gender: F Associate Professor Of Anthropology: MESSI : 1935 Requested By: Greg Ramon Order Number: [id number] MD: Saúl Landin Measurements Intervals [place] Rate: 123 P: [place]: QRS: -40 QRSD: 83 T: 65 QT: 353 QTc: 505 Interpretive Statements Atrial fibrillation Poor R wave progression Left axis deviation Compared to ECG 02/01/2016 19:03:06 No significant change was found Electronically Signed On 02-04-2018 9:16:38 CDT by Saúl Landin [email or web address] <ELECTRONICALLY SIGNED> By: Saúl Landin MD, [facility] 02/04/18 0916 D: [id number] 3 Saúl Landin MD, FACC /EPI
[2018-02-02 15:38] VITALS: BP 123/102
[2018-02-02 17:22] LABS: URINE BILIRUBIN NEGATIVE (Negative); URINE BLOOD 1+ (Negative); URINE CLARITY CLEAR; URINE COLOR YELLOW; URINE GLUCOSE-RANDOM* NEGATIVE (Negative); URINE KETONES NEGATIVE (Negative); URINE NITRITE-REFLEX NEGATIVE (Negative); URINE PROTEIN (DIPSTICK) TRACE (Negative); URINE UROBILINOGEN 0.2 E.U./dl (0.2-1.0)
[2018-02-02 17:23] LABS: URINE LEUKOCYTES-REFLEX 1+ (Negative)
[2018-02-02 17:31] LABS: SQUAMOUS 4-10 Moderate /LPF (0-3); URINE RBC 0-2 Rare /HPF (0-2)
[2018-02-02 17:32] LABS: BACTERIA-REFLEX 1-9 Few /HPF (None Seen); CRYSTALS None Seen /LPF (None Seen); HYALINE CASTS 0-3 Few /LPF (None Seen); WBC CLUMPS Few (None Seen)
[2018-02-02 17:57] LABS: BE(vivo) -0.3 mmol/L (-2 to +3); HCO3 22.1 mmol/L (22.0-26.0); PCO2 30.2 mmHg (35.0-45.0); PO2 62.9 mmHg (80.0-100.0); pH 7.482 (7.360-7.450); sO2 93.8 % (92.0-98.0)
[2018-02-02 18:36] LABS: ABSOLUTE NEUTROPHILS 10.9 thou/uL (1.4-8.2); BASOPHILS 0.2 % (0.0-2.0); EOSINOPHILS 0.3 % (0.0-3.0); HEMATOCRIT 33.7 % (37.0-47.0); HEMOGLOBIN 11.5 gm/dL (12.0-15.0); LYMPHOCYTES 4.9 % (24.0-44.0); MCH 30.5 pg (26.0-34.0); MCHC 34.2 g/dL (28.0-37.0); MCV 89.2 fL (80.0-100.0); PLATELET COUNT 162 thou/uL (150-400); POLYS 83.6 % (36.0-66.0); RBC 3.78 mil/uL (4.20-5.00); RDW 15.9 % (10.5-14.5)
[2018-02-02 18:45] LABS: ANION GAP 8 mmol/L (7-16); BUN 24 mg/dL (7-18); CALCIUM 9.2 mg/dL (8.5-10.1); CHLORIDE 97 mmol/L (98-107); CO2 25 mmol/L (21-32); CREATININE 1.3 mg/dL (0.6-1.0); GLUCOSE 129 mg/dL (74-106); POTASSIUM 4.5 mmol/L (3.5-5.1); SODIUM 130 mmol/L (136-145)
[2018-02-02 18:55] LABS: TROPONIN-I <0.06 ng/mL (<0.06)
[2018-02-02 19:56] LABS: INR 3.1; PROTIME 31.5 Seconds (9.3-11.4)
[2018-02-03 00:54] VITALS: BP 141/77
[2018-02-03 01:00] VITALS: BP 141/77
[2018-02-03 01:26] VITALS: BP 112/60
[2018-02-03 06:22] LABS: HEMATOCRIT 35.8 % (37.0-47.0); HEMOGLOBIN 12.2 gm/dL (12.0-15.0); MCH 30.7 pg (26.0-34.0); MCV 90.3 fL (80.0-100.0); PLATELET COUNT 177 thou/uL (150-400); RBC 3.96 mil/uL (4.20-5.00); RDW 16.2 % (10.5-14.5); WBC 13.8 thou/uL (4.0-11.0)
[2018-02-03 06:33] LABS: INR 3.2; PROTIME 31.8 Seconds (9.3-11.4)
[2018-02-03 06:37] LABS: ALBUMIN 3.1 g/dL (3.4-5.0); CALCIUM 8.9 mg/dL (8.5-10.1); CREATININE 1.4 mg/dL (0.6-1.0); TOTAL BILIRUBIN 3.5 mg/dL (<0.1-1.0); TOTAL PROTEIN 7.9 g/dL (6.4-8.2)
[2018-02-03 07:23] VITALS: BP 115/47
[2018-02-03 08:30] LABS: ABSOLUTE NEUTROPHILS 11.2 thou/uL (1.4-8.2)
[2018-02-03 08:31] LABS: ANISOCYTOSIS 1+
[2018-02-03 14:26] VITALS: BP 127/57
[2018-02-03 19:17] VITALS: BP 122/53
[2018-02-04 04:05] VITALS: BP 121/55
[2018-02-04 08:00] VITALS: BP 109/60
[2018-02-04 09:32] LABS: ABSOLUTE NEUTROPHILS 8.9 thou/uL (1.4-8.2); BASOPHILS 0.2 % (0.0-2.0); EOSINOPHILS 0.3 % (0.0-3.0); HEMATOCRIT 32.7 % (37.0-47.0); HEMOGLOBIN 11.3 gm/dL (12.0-15.0); LYMPHOCYTES 3.8 % (24.0-44.0); MCHC 34.5 g/dL (28.0-37.0); MCV 89.8 fL (80.0-100.0); PLATELET COUNT 167 thou/uL (150-400); POLYS 84.7 % (36.0-66.0); RBC 3.64 mil/uL (4.20-5.00); RDW 16.3 % (10.5-14.5); WBC 10.5 thou/uL (4.0-11.0)
[2018-02-04 09:44] LABS: INR 3.8; PROTIME 37.8 Seconds (9.3-11.4)
[2018-02-04 09:46] LABS: ALBUMIN 2.7 g/dL (3.4-5.0); CREATININE 1.4 mg/dL (0.6-1.0); POTASSIUM 3.7 mmol/L (3.5-5.1); TOTAL BILIRUBIN 2.8 mg/dL (<0.1-1.0); TOTAL PROTEIN 7.6 g/dL (6.4-8.2)
[2018-02-04 15:00] VITALS: BP 114/48
[2018-02-04 19:19] VITALS: BP 115/48
[2018-02-05 05:21] VITALS: BP 110/54
[2018-02-05 06:14] LABS: ABSOLUTE NEUTROPHILS 7.4 thou/uL (1.4-8.2); BASOPHILS 0.2 % (0.0-2.0); EOSINOPHILS 0.9 % (0.0-3.0); HEMATOCRIT 30.1 % (37.0-47.0); HEMOGLOBIN 10.3 gm/dL (12.0-15.0); LYMPHOCYTES 4.5 % (24.0-44.0); MCH 30.7 pg (26.0-34.0); MCHC 34.1 g/dL (28.0-37.0); PLATELET COUNT 165 thou/uL (150-400); POLYS 82.4 % (36.0-66.0); RBC 3.35 mil/uL (4.20-5.00); RDW 15.6 % (10.5-14.5)
[2018-02-05 06:28] LABS: PROTIME 18.1 Seconds (9.3-11.4)
[2018-02-05 06:30] LABS: INR 1.8
[2018-02-05 06:33] LABS: ALBUMIN 2.4 g/dL (3.4-5.0); CALCIUM 8.8 mg/dL (8.5-10.1); CREATININE 1.4 mg/dL (0.6-1.0); POTASSIUM 3.4 mmol/L (3.5-5.1); TOTAL BILIRUBIN 2.4 mg/dL (<0.1-1.0)
[2018-02-05 07:31] VITALS: BP 125/58
[2018-02-05 14:38] VITALS: BP 136/81
[2018-02-05 19:18] VITALS: BP 119/74
[2018-02-06 01:07] LABS: ADENOVIRUS Negative (Negative); INFLUENZA A Negative (Negative); INFLUENZA B Negative (Negative); METAPNEUMOVIRUS Negative (Negative); PARAINFLUENZA 1 Negative (Negative); PARAINFLUENZA 2 Negative (Negative); PARAINFLUENZA 3 Negative (Negative); RHINOVIRUS Negative (Negative); RSV A Negative (Negative); RSV B Negative (Negative)
[2018-02-06 03:54] VITALS: BP 124/70
[2018-02-06 05:49] LABS: HEMATOCRIT 28.9 % (37.0-47.0); HEMOGLOBIN 10.1 gm/dL (12.0-15.0); MCV 88.6 fL (80.0-100.0); RBC 3.26 mil/uL (4.20-5.00); RDW 15.7 % (10.5-14.5); WBC 9.2 thou/uL (4.0-11.0)
[2018-02-06 05:58] LABS: CALCIUM 8.9 mg/dL (8.5-10.1); CREATININE 1.9 mg/dL (0.6-1.0); INR 1.2
[2018-02-06 07:29] LABS: BE(vivo) 0.6 mmol/L (-2 to +3); HCO3 22.9 mmol/L (22.0-26.0); PCO2 29.4 mmHg (35.0-45.0); PO2 129.9 mmHg (80.0-100.0); sO2 98.9 % (92.0-98.0)
[2018-02-06 08:03] VITALS: BP 120/72
[2018-02-06 16:00] VITALS: BP 106/64
[2018-02-06 20:36] VITALS: BP 111/56
[2018-02-07 03:45] VITALS: BP 110/63
[2018-02-07 06:40] LABS: HEMATOCRIT 32.8 % (37.0-47.0); MCH 30.3 pg (26.0-34.0); MCHC 33.4 g/dL (28.0-37.0); MCV 90.7 fL (80.0-100.0); RBC 3.62 mil/uL (4.20-5.00); RDW 15.9 % (10.5-14.5); WBC 17.1 thou/uL (4.0-11.0)
[2018-02-07 06:44] LABS: INR 1.2; PROTIME 12.9 Seconds (9.3-11.4)
[2018-02-07 06:46] LABS: CALCIUM 9.5 mg/dL (8.5-10.1); POTASSIUM 4.2 mmol/L (3.5-5.1)
[2018-02-07 07:18] VITALS: BP 125/83
[2018-02-07 14:22] LABS: CLARITY SLIGHTLY CLOUDY; COLOR PINK; SOURCE BAL; TOTAL VOLUME 14 mL
[2018-02-07 14:30] LABS: BF NUCLEATED CELLS 568; BF RBC 3666
[2018-02-07 16:12] LABS: BF NEUTROPHILS 58
[2018-02-07 16:13] LABS: BF MACROPHAGE 34
[2018-02-07 17:19] VITALS: BP 106/64
[2018-02-07 19:17] VITALS: BP 124/56
[2018-02-08 03:19] VITALS: BP 132/63
[2018-02-08 07:15] VITALS: BP 120/52
[2018-02-08 07:19] LABS: HEMATOCRIT 30.3 % (37.0-47.0); HEMOGLOBIN 10.5 gm/dL (12.0-15.0); MCH 30.4 pg (26.0-34.0); MCHC 34.5 g/dL (28.0-37.0); MCV 88.2 fL (80.0-100.0); RBC 3.44 mil/uL (4.20-5.00); RDW 15.5 % (10.5-14.5)
[2018-02-08 07:31] LABS: CREATININE 1.9 mg/dL (0.6-1.0); INR 1.6; POTASSIUM 4.2 mmol/L (3.5-5.1); PROTIME 16.5 Seconds (9.3-11.4)
[2018-02-08 12:30] VITALS: BP 115/51
[2018-02-08 19:11] LABS: HISTOPLASMA MYCELIAL-ID Negative (Negative)
[2018-02-08 20:22] VITALS: BP 125/61
[2018-02-09 03:17] VITALS: BP 131/66
[2018-02-09 07:10] VITALS: BP 127/68
[2018-02-09 08:52] LABS: HEMATOCRIT 30.4 % (37.0-47.0); HEMOGLOBIN 10.4 gm/dL (12.0-15.0); MCH 30.4 pg (26.0-34.0); MCHC 34.3 g/dL (28.0-37.0); MCV 88.5 fL (80.0-100.0); RBC 3.43 mil/uL (4.20-5.00); RDW 15.4 % (10.5-14.5); WBC 8.3 thou/uL (4.0-11.0)
[2018-02-09 09:02] LABS: CALCIUM 8.5 mg/dL (8.5-10.1); CREATININE 1.6 mg/dL (0.6-1.0); INR 1.8; POTASSIUM 4.3 mmol/L (3.5-5.1); PROTIME 18.6 Seconds (9.3-11.4)
[2018-02-09] MEDS ORDERED: ATENOLOL 50MG T50 MG PO (11:26)
[2018-02-09] MEDS ORDERED: ATENOLOL 50MG T50 M1 PO (11:26)
[2018-02-09] MEDS ORDERED: LEVAQUIN 500 M500 M2 PO (11:38)
[2018-02-09] MEDS ORDERED: SYNTHROID25 MC1 PO (11:54)
[2018-02-09] MEDS ORDERED: DICLOFENAC SOD100 G1 TOP (11:54)
[2018-02-09] MEDS ORDERED: MELATONIN5 M1 PO (11:54)
[2018-02-09 11:57] LABS: CALCIUM 8.8 mg/dL (8.5-10.1); CREATININE 1.7 mg/dL (0.6-1.0); POTASSIUM 4.6 mmol/L (3.5-5.1)
[2018-02-09] MEDS ORDERED: DILTIAZEM 24HR240 M2 PO (13:01)
[2018-02-09] MEDS ORDERED: PREDNISONE 10 M10 MG PO (13:21)
[2018-02-09 18:57] VITALS: BP 131/61
[2018-02-10 03:01] VITALS: BP 138/75
[2018-02-10 07:05] VITALS: BP 131/61
[2018-02-10 08:51] LABS: HEMATOCRIT 30.7 % (37.0-47.0); HEMOGLOBIN 10.6 gm/dL (12.0-15.0); MCH 30.4 pg (26.0-34.0); MCHC 34.6 g/dL (28.0-37.0); MCV 87.9 fL (80.0-100.0); RBC 3.49 mil/uL (4.20-5.00); RDW 15.5 % (10.5-14.5); WBC 12.4 thou/uL (4.0-11.0)
[2018-02-10 08:59] LABS: CALCIUM 8.9 mg/dL (8.5-10.1); CREATININE 1.4 mg/dL (0.6-1.0); POTASSIUM 4.2 mmol/L (3.5-5.1)
[2018-02-10 09:02] LABS: INR 2.5; PROTIME 25.5 Seconds (9.3-11.4)
[2018-02-10 12:43] LABS: CALCIUM 8.6 mg/dL (8.5-10.1); CREATININE 1.6 mg/dL (0.6-1.0); POTASSIUM 4.3 mmol/L (3.5-5.1)
[2018-02-10 19:53] VITALS: BP 146/69
[2018-02-11 04:53] VITALS: BP 148/82
[2018-02-11 05:34] LABS: CALCIUM 8.3 mg/dL (8.5-10.1); CREATININE 1.3 mg/dL (0.6-1.0); POTASSIUM 4.5 mmol/L (3.5-5.1)
[2018-02-11 05:41] LABS: ABSOLUTE NEUTROPHILS 11.3 thou/uL (1.4-8.2); HEMATOCRIT 29.3 % (37.0-47.0); HEMOGLOBIN 9.8 gm/dL (12.0-15.0); LYMPHOCYTES 2.1 % (24.0-44.0); MCH 29.8 pg (26.0-34.0); MCHC 33.5 g/dL (28.0-37.0); MCV 88.7 fL (80.0-100.0); MONOCYTES 5.9 % (1.0-8.0); PLATELET COUNT 244 thou/uL (150-400); RDW 15.3 % (10.5-14.5); WBC 12.3 thou/uL (4.0-11.0)
[2018-02-11 05:52] LABS: INR 2.5; PROTIME 26.3 Seconds (9.3-11.4)
[2018-02-11 08:00] VITALS: BP 142/64
[2018-02-11 15:00] VITALS: BP 117/52
[2018-02-11 19:13] VITALS: BP 119/46
[2018-02-12 03:37] VITALS: BP 127/64
[2018-02-12 06:20] LABS: HEMATOCRIT 30.9 % (37.0-47.0); HEMOGLOBIN 10.3 gm/dL (12.0-15.0); MCH 29.3 pg (26.0-34.0); MCHC 33.2 g/dL (28.0-37.0); MCV 88.4 fL (80.0-100.0); RBC 3.5 mil/uL (4.20-5.00); RDW 15.8 % (10.5-14.5)
[2018-02-12 06:24] LABS: CALCIUM 8.5 mg/dL (8.5-10.1); CREATININE 1.3 mg/dL (0.6-1.0); POTASSIUM 4.6 mmol/L (3.5-5.1)
[2018-02-12 06:28] LABS: INR 1.3
[2018-02-12 08:00] VITALS: BP 143/71
[2018-02-12 13:32] LABS: DIRECT BILIRUBIN 0.3 mg/dL (<0.1-0.3); TOTAL BILIRUBIN 1.5 mg/dL (<0.1-1.0)
[2018-02-12 13:45] VITALS: BP 149/96
[2018-02-12 19:20] VITALS: BP 135/57
[2018-02-13 03:40] VITALS: BP 139/73
[2018-02-13 04:36] LABS: HEMATOCRIT 31.5 % (37.0-47.0); HEMOGLOBIN 10.5 gm/dL (12.0-15.0); MCH 29.7 pg (26.0-34.0); MCHC 33.3 g/dL (28.0-37.0); MCV 89.2 fL (80.0-100.0); RBC 3.53 mil/uL (4.20-5.00); RDW 15.6 % (10.5-14.5); WBC 9.6 thou/uL (4.0-11.0)
[2018-02-13 04:44] LABS: CALCIUM 8.2 mg/dL (8.5-10.1); CREATININE 1.2 mg/dL (0.6-1.0); POTASSIUM 4.6 mmol/L (3.5-5.1)
[2018-02-13 04:45] LABS: INR 1.3; PROTIME 13.3 Seconds (9.3-11.4)
[2018-02-13 07:46] VITALS: BP 132/66
[2018-02-13 15:42] VITALS: BP 121/58
[2018-02-13 19:14] VITALS: BP 116/49
[2018-02-14 04:05] VITALS: BP 137/43
[2018-02-14 07:31] VITALS: BP 126/56
[2018-02-14 07:55] LABS: CALCIUM 8.8 mg/dL (8.5-10.1); CREATININE 1.5 mg/dL (0.6-1.0); POTASSIUM 4.1 mmol/L (3.5-5.1)
[2018-02-14 15:22] VITALS: BP 135/72
[2018-02-14] MEDS ORDERED: NYSTATIN100000 UNI PO (15:27)
[2018-02-14] MEDS ORDERED: PREDNISONE 20 M20 MG PO (15:27)
[2018-02-14] MEDS ORDERED: LEVAQUIN 500 M500 M2 PO (15:27)
[2018-02-14] MEDS ORDERED: PANTOPRAZOLE SO40 M1 PO (15:27)
[2018-02-14] MEDS ORDERED: DEMADEX20 MG PO (15:27)
[2018-02-14] MEDS ORDERED: COUMADIN 2.5MG2.5 M1 PO (15:33)
== END 2018-02-14 16:51 | DRG 177 ==
LOC: ER 15:18 → EROBS 19:05 → 4W 19:05
PROVIDERS: Internal Medicine; Internal Medicine Cardiovascular Disease; Internal Medicine Infectious Disease; Internal Medicine Pulmonary Disease; Specialist; Student in an Organized Health Care Education/Training Program
DX: J69.0 Pneumonitis due to inhalation of food and vomit (principal); J96.01 Acute respiratory failure with hypoxia; E87.1 Hypo-osmolality and hyponatremia; B37.81 Candidal esophagitis; I50.32 Chronic diastolic (congestive) heart failure; I38 Endocarditis, valve unspecified; N39.0 Urinary tract infection, site not specified; I48.0 Paroxysmal atrial fibrillation; E87.70 Fluid overload, unspecified; R13.10 Dysphagia, unspecified; M06.9 Rheumatoid arthritis, unspecified; M54.9 Dorsalgia, unspecified; E03.9 Hypothyroidism, unspecified; M41.9 Scoliosis, unspecified; R68.2 Dry mouth, unspecified; K29.60 Other gastritis without bleeding; I25.10 Atherosclerotic heart disease of native coronary artery without angina pectoris; G89.4 Chronic pain syndrome; H54.8 Legal blindness, as defined in USA; M19.90 Unspecified osteoarthritis, unspecified site; E78.5 Hyperlipidemia, unspecified; E11.9 Type 2 diabetes mellitus without complications; D72.829 Elevated white blood cell count, unspecified; G47.00 Insomnia, unspecified; B96.20 Unspecified Escherichia coli [E. coli] as the cause of diseases classified elsewhere; T38.0X5A Adverse effect of glucocorticoids and synthetic analogues, initial encounter; K21.9 Gastro-esophageal reflux disease without esophagitis; R14.2 Eructation; I11.0 Hypertensive heart disease with heart failure; T18.120A Food in esophagus causing compression of trachea, initial encounter; B95.5 Unspecified streptococcus as the cause of diseases classified elsewhere; M43.6 Torticollis; E80.4 Gilbert syndrome; E11.65 Type 2 diabetes mellitus with hyperglycemia; Z96.659 Presence of unspecified artificial knee joint; H40.9 Unspecified glaucoma; Z90.49 Acquired absence of other specified parts of digestive tract; Z98.42 Cataract extraction status, left eye; Z98.41 Cataract extraction status, right eye; Z88.2 Allergy status to sulfonamides; Z95.5 Presence of coronary angioplasty implant and graft; I25.2 Old myocardial infarction; Z79.82 Long term (current) use of aspirin; Z79.899 Other long term (current) drug therapy; Z79.01 Long term (current) use of anticoagulants
CPT/HCPCS: 10045; 62110; 62900; 70005

== ENCOUNTER 2018-03-09 16:24 | Emergency (ER) | payer OTHER ==
[~2018-03-09] VITALS: Ht 162.6 cm; Wt 81.7 kg
--- NOTE | ~2018-03-09 | EKG ---
[address] [address] ELECTROCARDIOGRAM REPORT Name: SANAZ VALERIO Room #: DEJAH Saavedra#: [id number] Admission: 03/09/18 Attend Phys: Discharge: 03/09/18 Date of : 35 Report #: [id number] THIS REPORT FOR: //name// [facility] ED Test Date: 2018-03-09 Test Time: 18:56:08 Pat Name: SANAZ VALERIO Department: Room: Gender: F Insulation Installer: JAYDEN : 1935 Requested By: Jeff Farley Order Number: [id number] MD: Kit Lazo Measurements Intervals [place] Rate: 79 P: [place]: QRS: -35 QRSD: 144 T: 68 QT: 413 QTc: 474 Interpretive Statements Atrial fibrillation Left ventricular hypertrophy Artifact in lead(s) II,III,aVF,V1,V2,V3,V4,V5,V6 Compared to ECG 02/03/2018 09:34:36 Left ventricular hypertrophy now present Poor R-wave progression no longer present Left-axis deviation no longer present Electronically Signed On 03-10-2018 10:28:20 SYSTEM SUPPORT TECHNICIAN by Kit Lazo [email or web address] <ELECTRONICALLY SIGNED> By: Kit Lazo MD 03/10/18 1028 1856 1856 Kit Lazo MD /EPI
[~2018-03-09 16:24] MED LIST changes: +ATENOLOL 50MG T50 MG PO; +COUMADIN 2.5MG2.5 M1 PO; +DEMADEX20 MG PO; +DICLOFENAC SOD100 G1 TOP; +DILTIAZEM 24HR240 M2 PO; +LEVAQUIN 500 M500 M2 PO; +MELATONIN5 M1 PO; +NYSTATIN100000 UNI PO; +PANTOPRAZOLE SO40 M1 PO; +PREDNISONE 10 M10 MG PO; +PREDNISONE 20 M20 MG PO; +SYNTHROID25 MC1 PO
[2018-03-09 18:01] LABS: BE(vivo) 6.4 mmol/L (-2 to +3); HCO3 29.7 mmol/L (22.0-26.0); PCO2 38.1 mmHg (35.0-45.0); PO2 86.7 mmHg (80.0-100.0); sO2 97.3 % (92.0-98.0)
[2018-03-09 19:38] LABS: ABSOLUTE NEUTROPHILS 7.5 thou/uL (1.4-8.2); BASOPHILS 0.5 % (0.0-2.0); EOSINOPHILS 0.4 % (0.0-3.0); HEMATOCRIT 34.4 % (37.0-47.0); HEMOGLOBIN 11.6 gm/dL (12.0-15.0); LYMPHOCYTES 11.5 % (24.0-44.0); MCH 29.4 pg (26.0-34.0); MCHC 33.6 g/dL (28.0-37.0); MCV 87.4 fL (80.0-100.0); MONOCYTES 7.9 % (1.0-8.0); PLATELET COUNT 371 thou/uL (150-400); POLYS 79.7 % (36.0-66.0); RBC 3.94 mil/uL (4.20-5.00); RDW 17.1 % (10.5-14.5); WBC 9.4 thou/uL (4.0-11.0)
[2018-03-09 19:48] LABS: CALCIUM 9.3 mg/dL (8.5-10.1); CREATININE 2.1 mg/dL (0.6-1.0); POTASSIUM 4.1 mmol/L (3.5-5.1)
[2018-03-09 19:53] LABS: ALBUMIN 3.2 g/dL (3.4-5.0); TOTAL BILIRUBIN 1.1 mg/dL (<0.1-1.0); TOTAL PROTEIN 7.6 g/dL (6.4-8.2)
[2018-03-09 19:55] LABS: MAGNESIUM 2.8 mg/dL (1.8-2.4); TROPONIN-I <0.06 ng/mL (<0.06)
[2018-03-09] MEDS ORDERED: ALBUTEROL2.5 MG/31 INH (21:11)
[2018-03-09 21:50] VITALS: BP 98/56
== END 2018-03-09 22:02 | disposition home or self-care (01) ==
LOC: ER 16:24
PROVIDERS: Emergency Medicine
DX: M05.10 Rheumatoid lung disease with rheumatoid arthritis of unspecified site (principal); R06.00 Dyspnea, unspecified; R09.02 Hypoxemia; I11.0 Hypertensive heart disease with heart failure; I50.9 Heart failure, unspecified; E11.9 Type 2 diabetes mellitus without complications; I25.10 Atherosclerotic heart disease of native coronary artery without angina pectoris; I48.91 Unspecified atrial fibrillation; G47.00 Insomnia, unspecified; G89.29 Other chronic pain; M54.9 Dorsalgia, unspecified; Z87.01 Personal history of pneumonia (recurrent); Z88.2 Allergy status to sulfonamides; Z90.49 Acquired absence of other specified parts of digestive tract; Z96.659 Presence of unspecified artificial knee joint

== ENCOUNTER 2018-03-18 12:48 | Inpatient (IN) | payer OTHER ==
[~2018-03-18] VITALS: Ht 165.1 cm; Wt 81.6 kg
--- NOTE | ~2018-03-18 | HC ---
[facility] [place] [address] CONSULTATION Name: SANAZ VALERIO Room #: 460-P [facility] IN M.R.#: [id number] Admission: 03/18/18 Attend Phys: Greg Ramon MD Discharge: Date of : 35 Report #: [id number] THIS REPORT FOR: //name// CC: Greg Ramon DATE OF SERVICE: 03/19/2018 ATTENDING PHYSICIAN: Greg Ramon MD. REASON FOR CONSULTATION: Pulmonary infiltrates. HISTORY OF PRESENT ILLNESS: The patient is an 83-year-old white woman with history of rheumatoid arthritis, on treatment with disease modifying agents by Dr. Edwardo Thomas, recently discharged from [facility] after a prolonged hospitalization for pulmonary infiltrates and respiratory failure. The patient did improve after being treated with systemic steroids and antibiotics. Bronchoscopy was nondiagnostic. The patient was [facility]. She was discharged on steroids and those were tapered down and finally discontinued maybe 2-4 days ago. The patient did not yet see Dr. Edwardo Thomas at the time of this discharge. Besides the tapering doses of prednisone, she was discharged on Levaquin. Apparently, this patient went on developing increasing shortness of breath. In the last few days, she developed some respiratory failure and her CT scan revealed worsening pulmonary infiltrates and left-sided pleural effusion. PAST MEDICAL HISTORY: Knee replacement, cholecystectomy, cataract surgery, rheumatoid arthritis, on disease modifying agent per Dr. Edwardo Thomas. Reflux esophagitis. Esophageal candidiasis, treated with nystatin. 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 Blindness. Fibromyalgia. DRUG ALLERGIES: SULFA DRUGS. MEDICATIONS: At home, she is on Atrovent and albuterol inhalation treatments, atenolol, atorvastatin, cholecalciferol. She used to be on amiodarone, but the possibility of amiodarone-induced pulmonary toxicity was entertained and she did improve after discontinuation of the tracks and trial of steroids. She is also on torsemide. CURRENT MEDICATIONS: Include torsemide, diltiazem, atorvastatin, Atrovent, albuterol inhalation treatment, levothyroxine, pantoprazole, methylprednisolone 125 mg IV q.6h., trazodone, atenolol, insulin lispro per sliding scale, melatonin, p.r.n. alprazolam, normal saline, p.r.n. glucose, p.r.n. glucagon, oxycodone immediate release p.r.n., diclofenac topical. SOCIAL HISTORY: See H douglas P, old records. [address] [address] CONSULTATION Name: SANAZ VALERIO Room #: 460-P [facility] IN [facility].#: [id number] Admission: 03/18/18 Attend Phys: Greg Ramon MD Discharge: Date of : 35 Report #: [id number] FAMILY HISTORY: See Kd cole P, old records. REVIEW OF SYSTEMS: As above and see Kd cole P. PHYSICAL EXAMINATION: GENERAL: Chronically ill-appearing woman, dyspneic at rest, afebrile. VITAL SIGNS: Temperature 97.5, pulse 91, respirations 20, BP 114/57, height 5 feet 5 inches, weight 180 pounds. HEENMT: Blind. Pupils reactive. Conjunctivae normal. Mouth: No thrush. NECK: No . LUNGS: Bilateral crackles. Decreased breath sounds on left. HEART: S1, S2. No gallop. ABDOMEN: Soft, no masses or megaly. PELVIC AND RECTAL: Deferred. EXTREMITIES: No clubbing, cyanosis. NEUROLOGIC: Grossly within normal limits. LABORATORY DATA: Sodium 127, potassium 4.4, BUN 24, creatinine 1.5, glucose 132, total bilirubin 1.6. Albumin 2.6 g/dL. The C-reactive protein is 189 mg/L. On previous hospitalization on 02/03/2018, the CRP that was on admission 172.3 mg/L and repeated on 02/09/2018 went down to 34.9 mg/L. WBC 10,400, hemoglobin 9.8 g/dL, platelets 215,000. White blood cell count differential yesterday revealed 89% segmented neutrophils. Sedimentation rate yesterday was 127 mm per hour; on 02/03/2018, 150 mm per hour; on 02/09/2018, 109 mm per hour. Her TSH was previously elevated 29.1 on 02/03/2018. Her hemoglobin A1c mildly elevated at 7.1% with estimated average sugars 157 mg/dL. ABGs revealed pH 7.50, pCO2 26, pO2 54, bicarbonate 20, lactate normal. This set of gases is on FIO2 of 21%. When the patient is on supplemental oxygens, her PO2 goes to 79.6 mmHg and this is on 2 liters oxygen nasal cannula. MICROBIOLOGY DATA: Blood cultures were obtained, they remain negative so far. On the previous bronchoscopy on 02/2018, Hoa albicans was isolated and sputum was suspected to be a contaminant from esophageal candidiasis. RADIOLOGY EVALUATION: A CT scan of the chest, high resolution revealed significant worsening of bilateral pulmonary infiltrate, more prominent within upper lobes with development of small to moderate right and small to moderate left pleural effusion. A repeat chest x-ray today revealed diffuse perihilar infiltrates, increased consolidation upper lobes compared to previous one as well as mild pulmonary vascular congestion not excluded. Note is made that the NT-proBNP was significantly elevated on previous admission. ASSESSMENT: 1. Extensive bilateral pulmonary infiltrates, suspect either autoimmune [facility] [address] [place] [address] CONSULTATION Name: SANAZ VALERIO Room #: 460-P ADM IN .R.#: [id number] Admission: 03/18/18 Attend Phys: Greg Ramon MD Discharge: Date of : 35 Report #: [id number] pulmonary infiltrates versus amiodarone-induced lung damage with superimposed congestive heart failure. 2. Diabetes mellitus. 3. Hypoalbuminemia. 4. Blindness. SUGGESTIONS: Recommend after having discussed situation with the patient's daughter and Dr. Ramon, I recommend no antibiotic at present time, though I completely agree with high dose steroids in attempt to control the autoimmune or amiodarone-induced lung damage. I have ordered a NT-proBNP since this was significantly elevated and I wonder if further diuresis may be in order. Thoracentesis may be indicated by Pulmonary physicians if they consider this might help in her diagnosis or therapeutic approach. Dr. Ramon, thank you for requesting my suggestions. <ELECTRONICALLY SIGNED> By: Sanchez Tamez MD 03/20/18 1002 1240 1845 Sanchez Tamez MD /nt
--- NOTE | ~2018-03-18 | 2DMMODE ---
[address] [address] 2 D/M-MODE ECHOCARDIOGRAM Name: SANAZ VALERIO Room #: 460-P ADM IN [facility].#: [id number] Admission: 03/18/18 Attend Phys: Greg Ramon, Discharge: Date of : 35 Date of Service: 03/19/18 1223 Report #: [id number] THIS REPORT FOR: //name// APPROVED REPORT Study performed: 03/19/2018 10:57:32 EXAM: Comprehensive 2D, Doppler, and color-flow Echocardiogram Patient Location: In-Patient Room #: Echo 2 Status: routine BSA: 1.89 HR: 93 bpm BP: 114/57 mmHg Rhythm: Atrial Fibrillation Other Information Study Quality: Adequate Risk Factors: Cardiac Risk Factors: HTN, SOB Indications Atrial Fibrillation Dyspnea CAD Hypertension/HDD 2D Dimensions IVC: 20.00 mm Tricuspid Valve TR Peak Richard.: 3.28 m/s TR Peak Gr.: 43.31 mmHg PA Pressure: 48.31 mmHg Left Ventricle The left ventricle is normal size. There is normal LV segmental wall motion. The left ventricular systolic function is normal. LVEF is 60-65%. Right Ventricle The right ventricle is normal size. The right ventricular systolic function is normal. [address] [address] D/M-MODE ECHOCARDIOGRAM Name: SANAZ VALERIO Room #: 460-P ADM IN M.R.#: [id number] Admission: 03/18/18 Attend Phys: Greg Ramon, Discharge: Date of : 35 Date of Service: 03/19/18 1223 Report #: [id number] Atria Left atrium is dilated. Right atrium is dilated. Aortic Valve The aortic valve is normal in structure. Aortic valve is calcified. Mild aortic regurgitation. Mitral Valve There is mitral annular calcification. The mitral valve is normal in structure. Mild mitral regurgitation. Tricuspid Valve The tricuspid valve is normal in structure. Mild to moderate tricuspid regurgitation. Estimated PAP 48.31 mmHg. Moderate pulmonary hypertension. Great Vessels IVC is dilated and collapses >50% with inspiration. Pericardium There is no pericardial effusion. <Conclusion> The left ventricle is normal size. LVEF is 60-65%. There is normal LV segmental wall motion. The right ventricle is normal size. Left atrium is dilated. Right atrium is dilated. The aortic valve is normal in structure. Aortic valve is calcified. Mild aortic regurgitation. There is mitral annular calcification. The mitral valve is normal in structure. The tricuspid valve is normal in structure. Mild to moderate tricuspid regurgitation. Estimated PAP 48.31 mmHg. Moderate pulmonary hypertension. There is no pericardial effusion. <ELECTRONICALLY SIGNED> By: Raimundo Morrison MD 03/19/18 1223 1223 1223 Raimundo Morrison MD /INF
--- NOTE | ~2018-03-18 | EKG ---
[address] [address] ELECTROCARDIOGRAM REPORT Name: SANAZ VALERIO Room #: 460-P ADM IN M.R.#: [id number] Admission: 03/18/18 Attend Phys: Greg Ramon MD Discharge: Date of : 35 Report #: [id number] THIS REPORT FOR: //name// [facility] Test Date: 2018-03-19 Test Time: 09:36:28 Pat Name: SANAZ VALERIO Department: Room: 460 P Gender: F Loans Consultant: JESS : 1935 Requested By: Teresita Clark Order Number: [id number] MD: Harris Tamez Measurements Intervals [place] Rate: 95 P: [place]: QRS: -21 QRSD: 87 T: 65 QT: 402 QTc: 506 Interpretive Statements Atrial fibrillation Borderline left axis deviation RSR' in V1 or V2, probably normal variant Compared to ECG 03/09/2018 18:56:08 Electronically Signed On 03-19-2018 13:27:22 ELECTRICAL TECHNOLOGY INSTRUCTOR by Harris Tamez [email or web address] <ELECTRONICALLY SIGNED> By: Harris Tamez MD 03/19/18 1327 5 Harris Tamez MD /EAN
--- NOTE | ~2018-03-18 | H ---
[facility] [place] [address] HISTORY AND PHYSICAL Name: SANAZ VALERIO Room #: 460-P ADM IN M.R.#: [id number] Admission: 03/18/18 Attend Phys: Greg Ramon MD Discharge: Date of : 35 Report #: [id number] THIS REPORT FOR: //name// CC: Greg Ramon DATE OF SERVICE: 03/18/2018 CHIEF COMPLAINT: Progressive dyspnea with exertion and redevelopment of hypoxia. HISTORY OF PRESENT ILLNESS: The patient is an 83-year-old white female with a long history of rheumatoid arthritis, treated effectively with biologic agents, who was 2 weeks overdue for her Actemra infusion when her dyspnea on exertion and hypoxia was such that she came to the hospital on 02/02/2018 and was admitted. She was found to have diffuse pneumonitis, and was treated with high dose corticosteroids as well as broad spectrum antibiotics and improved. She was discharged to a [facility] facility on 02/14/2018, where she finished her antibiotics and her prednisone was tapered and ultimately discontinued. While in the hospital, she underwent evaluation including multiple laboratory data and a bronchoscopy with bronchoalveolar lavage specimens. The specimens ultimately showed no significant pathogens. One of the concerns was amiodarone lung toxicity might be the cause of the pneumonitis, her atrial fibrillation had become permanent, so her amiodarone was discontinued. Her heart rate was controlled with medications. Her CRP was 172 when admitted, and after broad spectrum treatment/corticosteroids her CRP a week later had dropped to 34, and now a month later it is back up to 189. Her sed rate was 115 on admission, only dropped to 109 a week after admission, was significantly lower when measured in the [facility] facility, but today has risen again to 127. This afternoon a high resolution CT scan of her lungs showed worsening of her bilateral pulmonary infiltrates when compared with the previous high resolution CT of 02/06/2018. Further details are contained in the discharge summary from that hospital stay. While at the [facility] facility her oxygenation normalized. Her significant swelling in her legs from the corticosteroids improved with diuresis. She gained some of her strength. Her labial herpes improved also. PERTINENT PAST MEDICAL HISTORY: Significant for long-term rheumatoid arthritis with successful treatment with biologics. She has had chronically severe esophageal reflux symptoms, and torticollis of her neck was attributed to custodial treatment with metoclopramide. She has gastroparesis and presby esophagus. She developed marked edema from her corticosteroids. She had mild dysphagia. She has had chronic dorsal kyphosis and thoracolumbar scoliosis. [address] [address] HISTORY AND PHYSICAL Name: SANAZ VALERIO Room #: 460-P [facility] IN ..#: [id number] Admission: 03/18/18 Attend Phys: Greg Ramon MD Discharge: Date of : 35 Report #: [id number] Presbyesophagus was identified. Erythematous antral gastritis, moderate Hoa esophagitis at the time of EGD was found also. She had acute kidney injury with her baseline creatinine of 1.2, increasing seen to 2.1 with diuresis. Hoa esophagitis was found (due to the corticosteroids) and treated. Her thyroid replacement was increased. She has chronic back pain from her kyphoscoliosis and chronic neck pain from multiple factors as well as her torticollis. Towards the end of her hospital stay she was tender at multiple body sites suggestive of fibromyalgia. She developed extensive aphthous ulcers inside her mouth that were slow to heal, as well as herpes labialis in the left corner of her mouth. ALLERGIES: SULFA ANTIBIOTICS. HOME MEDICATION LIST: Ipratropium/albuterol nebulizer every 6 hours as needed, aspirin 81 mg aspirin daily, atenolol 50 mg twice daily for blood pressure and rate control, atorvastatin 80 mg once a day in the evening, azelastine nose spray as needed, cholecalciferol 1000 units twice daily, diclofenac sodium 100 grams apply 2 grams to sore joints up to 4 times a day for "joint pain," diltiazem 240 mg 24-hour capsule once daily for AFib, levothyroxine 0.025 mg 2 pills on Mondays, Wednesdays, and Fridays and 1 pill all the other days of the week. Melatonin 5 mg 2 tablets at bedtime as needed for sleep. Nystatin oral suspension swish and swallow treatment course was committed and finished approximately 6 weeks ago. Oxycodone IR 5 mg 1 tablet every 4 hours and pantoprazole 50 mg 1 before breakfast and one before supper with 20 mg of prednisone twice daily for pneumonitis, torsemide 20 mg once daily for leg swelling was taken up until last week when it was no longer needed, warfarin 2.5 mg on an adjusted basis. REVIEW OF SYSTEMS: Noncontributory. FAMILY HISTORY: Noncontributory. OBJECTIVE: GENERAL: The patient is awake, alert and oriented. HEENT: The oropharynx has extensive damaged teeth. There are no oral ulcers at the time she checked in. There is a healing crusted lesion on the left corner of the mouth from herpes labialis that she developed 5 weeks ago. NECK: Negative. LUNGS: There are faint crackles throughout both of the lower lung fernandes, diminished towards upper lung fernandes. CARDIOVASCULAR: S1 and S2 are normal and the rhythm is irregularly irregular. ABDOMEN: Soft, nontender, without hepatosplenomegaly or masses. EXTREMITIES: There is only mild edema present in the lower extremities. Andrews wraps are in place, and the Andrews wraps were not removed for examination. By [facility] [address] [place] [address] HISTORY AND PHYSICAL Name: SANAZ VALERIO Room #: 460-P [facility] IN .R.#: [id number] Admission: 03/18/18 Attend Phys: Greg Ramon MD Discharge: Date of : 35 Report #: [id number] history, there is a small ulcer on the medial border of the left foot that is being followed by the home health services, and is currently wrapped at the time of my examination. ASSESSMENT: 1. Recurrent diffuse interstitial lung disease. 2. Hypoxia/progression of lung disease appears to have occurred as the steroids were tapered and stopped. Inflammatory markers are markedly elevated. 3. Other medical problems as mentioned above. PLAN: She is admitted and has been placed on high-dose Solu-Medrol by Dr. Stevenson. She will be seen in consultation by Infectious Disease Department, Cardiology Department, and Dr. Edwardo Thomas of the Rheumatology Service. An open lung biopsy may be necessary. By: [id number] Greg Ramon MD /nt
[~2018-03-18 12:48] MED LIST changes: +ALBUTEROL2.5 MG/31 INH
[2018-03-18 15:55] LABS: BE(vivo) 0 mmol/L (-2 to +3); PCO2 27.8 mmHg (35.0-45.0); PO2 79.6 mmHg (80.0-100.0); pH 7.517 (7.360-7.450); sO2 96.9 % (92.0-98.0)
[2018-03-18 16:47] LABS: HEMATOCRIT 32.4 % (37.0-47.0); HEMOGLOBIN 10.9 gm/dL (12.0-15.0); MCH 29.2 pg (26.0-34.0); MCHC 33.6 g/dL (28.0-37.0); MCV 86.9 fL (80.0-100.0); RBC 3.73 mil/uL (4.20-5.00); RDW 17.7 % (10.5-14.5); WBC 11.9 thou/uL (4.0-11.0)
[2018-03-18 17:01] LABS: PO2 54.9 mmHg (80.0-100.0); pH 7.505 (7.360-7.450); sO2 91.8 % (92.0-98.0)
[2018-03-18 17:02] LABS: ALBUMIN 2.6 g/dL (3.4-5.0); CALCIUM 8.9 mg/dL (8.5-10.1); CREATININE 1.6 mg/dL (0.6-1.0); POTASSIUM 4.5 mmol/L (3.5-5.1); TOTAL BILIRUBIN 1.6 mg/dL (<0.1-1.0); TOTAL PROTEIN 7.4 g/dL (6.4-8.2)
[2018-03-18 19:09] VITALS: BP 117/65
[2018-03-19 02:41] LABS: CALCIUM 8.4 mg/dL (8.5-10.1); CREATININE 1.5 mg/dL (0.6-1.0); POTASSIUM 4.4 mmol/L (3.5-5.1)
[2018-03-19 02:42] LABS: PROTIME 21.2 Seconds (9.3-11.4)
[2018-03-19 02:46] LABS: ABSOLUTE NEUTROPHILS 9.4 thou/uL (1.4-8.2); BASOPHILS 0.8 % (0.0-2.0); EOSINOPHILS 0.5 % (0.0-3.0); HEMATOCRIT 29.5 % (37.0-47.0); HEMOGLOBIN 9.8 gm/dL (12.0-15.0); LYMPHOCYTES 3.3 % (24.0-44.0); MCH 28.9 pg (26.0-34.0); MCHC 33.3 g/dL (28.0-37.0); MCV 86.8 fL (80.0-100.0); MONOCYTES 5.7 % (1.0-8.0); PLATELET COUNT 215 thou/uL (150-400); POLYS 89.7 % (36.0-66.0); RDW 17.4 % (10.5-14.5); WBC 10.4 thou/uL (4.0-11.0)
[2018-03-19 02:55] VITALS: BP 136/57
[2018-03-19 04:11] LABS: GLYCOHEMOGLOBIN (HGB A1C) 7.1 % (4.8-5.6)
[2018-03-19 07:23] VITALS: BP 114/57
[2018-03-19 13:45] VITALS: BP 98/53
[2018-03-19 14:59] LABS: URINE BILIRUBIN NEGATIVE (Negative); URINE BLOOD NEGATIVE (Negative); URINE CLARITY CLEAR; URINE COLOR YELLOW; URINE GLUCOSE-RANDOM* 3+ (Negative); URINE KETONES NEGATIVE (Negative); URINE LEUKOCYTES-REFLEX NEGATIVE (Negative); URINE NITRITE-REFLEX NEGATIVE (Negative); URINE PROTEIN (DIPSTICK) NEGATIVE (Negative); URINE SPECIFIC GRAVITY <= 1.005 (1.005-1.035); URINE UROBILINOGEN 0.2 E.U./dl (0.2-1.0)
[2018-03-19 19:48] VITALS: BP 120/63
[2018-03-20 04:32] VITALS: BP 112/52
[2018-03-20 05:56] LABS: INR 2.8
[2018-03-20 06:07] LABS: CALCIUM 8.3 mg/dL (8.5-10.1); CREATININE 1.7 mg/dL (0.6-1.0); POTASSIUM 4.3 mmol/L (3.5-5.1)
[2018-03-20 07:26] VITALS: BP 117/63
[2018-03-20 14:13] VITALS: BP 89/57
[2018-03-20 19:50] VITALS: BP 99/61
[2018-03-21 02:55] VITALS: BP 103/62
[2018-03-21 05:33] LABS: HEMATOCRIT 27.7 % (37.0-47.0); HEMOGLOBIN 9.4 gm/dL (12.0-15.0); MCH 28.9 pg (26.0-34.0); MCHC 33.8 g/dL (28.0-37.0); MCV 85.6 fL (80.0-100.0); RBC 3.24 mil/uL (4.20-5.00); RDW 17.2 % (10.5-14.5); WBC 9.3 thou/uL (4.0-11.0)
[2018-03-21 05:40] LABS: CREATININE 1.9 mg/dL (0.6-1.0); POTASSIUM 4.5 mmol/L (3.5-5.1)
[2018-03-21 05:48] LABS: INR 2.6; PROTIME 27.5 Seconds (9.3-11.4)
[2018-03-21 08:01] VITALS: BP 107/63
[2018-03-21 20:00] VITALS: BP 92/54
[2018-03-22 04:59] VITALS: BP 117/41
[2018-03-22 06:08] LABS: CALCIUM 8.7 mg/dL (8.5-10.1); POTASSIUM 3.9 mmol/L (3.5-5.1)
[2018-03-22 06:09] LABS: INR 2.3; PROTIME 23.5 Seconds (9.3-11.4)
[2018-03-22 07:28] VITALS: BP 106/68
[2018-03-22 13:51] LABS: CALCIUM 8.8 mg/dL (8.5-10.1); POTASSIUM 3.8 mmol/L (3.5-5.1)
[2018-03-22 16:00] VITALS: BP 98/44
[2018-03-22 19:18] VITALS: BP 91/58
[2018-03-23 05:57] VITALS: BP 126/72
[2018-03-23 07:32] LABS: CALCIUM 8.9 mg/dL (8.5-10.1)
[2018-03-23 07:33] LABS: INR 2.1; PROTIME 21.6 Seconds (9.3-11.4)
[2018-03-23 14:51] LABS: CALCIUM 8.9 mg/dL (8.5-10.1); CREATININE 1.9 mg/dL (0.6-1.0)
[2018-03-23 19:41] VITALS: BP 105/64
[2018-03-24 04:04] VITALS: BP 117/66
[2018-03-24 07:50] LABS: INR 2.3; PROTIME 23.7 Seconds (9.3-11.4)
[2018-03-24 08:00] VITALS: BP 117/71
[2018-03-24 14:17] LABS: CALCIUM 8.8 mg/dL (8.5-10.1); CREATININE 1.8 mg/dL (0.6-1.0); POTASSIUM 4.2 mmol/L (3.5-5.1)
[2018-03-24 16:00] VITALS: BP 115/67
[2018-03-24 19:20] VITALS: BP 151/113
[2018-03-25 04:03] VITALS: BP 145/67
[2018-03-25 04:17] LABS: INR 2.7; PROTIME 28.1 Seconds (9.3-11.4)
[2018-03-25 08:10] VITALS: BP 110/68
[2018-03-25 14:35] VITALS: BP 104/58
[2018-03-25 19:43] VITALS: BP 114/60
[2018-03-26 04:28] VITALS: BP 126/70
[2018-03-26 07:47] LABS: INR 3.2
[2018-03-26 08:15] VITALS: BP 113/80
[2018-03-26 14:30] VITALS: BP 111/50
[2018-03-26 19:11] VITALS: BP 123/57
[2018-03-26 22:26] VITALS: BP 123/73
[2018-03-27 05:49] VITALS: BP 134/64
[2018-03-27 06:54] LABS: HEMATOCRIT 30.4 % (37.0-47.0); HEMOGLOBIN 10.1 gm/dL (12.0-15.0); MCH 28.3 pg (26.0-34.0); MCHC 33.2 g/dL (28.0-37.0); RBC 3.58 mil/uL (4.20-5.00); WBC 12.8 thou/uL (4.0-11.0)
[2018-03-27 07:06] LABS: INR 3.8; PROTIME 39.5 Seconds (9.3-11.4)
[2018-03-27 07:15] LABS: CALCIUM 8.8 mg/dL (8.5-10.1); CREATININE 1.5 mg/dL (0.6-1.0); POTASSIUM 4.6 mmol/L (3.5-5.1)
[2018-03-27 07:49] VITALS: BP 118/59
[2018-03-27 14:25] VITALS: BP 116/78
[2018-03-27] MEDS ORDERED: COUMADIN 5 MG TA5 M1 PO (15:50)
[2018-03-27 16:13] VITALS: BP 116/78
[2018-03-27] MEDS ORDERED: PREDNISONE 10 M10 MG PO (16:17)
[2018-03-27] MEDS ORDERED: NOVOLOG100 UNIT/1 SUBQ (16:17)
[2018-03-27] MEDS ORDERED: BASAGLAR K100 UNIT/1 SUBQ (18:14)
== END 2018-03-27 19:40 | disposition home health service (06) | DRG 193 ==
LOC: CAT 12:48 → 4W 14:23
PROVIDERS: Internal Medicine; Internal Medicine Cardiovascular Disease; Internal Medicine Pulmonary Disease
DX: J18.9 Pneumonia, unspecified organism (principal); E43 Unspecified severe protein-calorie malnutrition; J96.01 Acute respiratory failure with hypoxia; B37.81 Candidal esophagitis; I50.30 Unspecified diastolic (congestive) heart failure; I13.0 Hypertensive heart and chronic kidney disease with heart failure and stage 1 through stage 4 chronic kidney disease, or unspecified chronic kidney disease; F05 Delirium due to known physiological condition; G93.49 Other encephalopathy; M06.9 Rheumatoid arthritis, unspecified; M79.7 Fibromyalgia; E11.43 Type 2 diabetes mellitus with diabetic autonomic (poly)neuropathy; B00.1 Herpesviral vesicular dermatitis; H54.8 Legal blindness, as defined in USA; E78.5 Hyperlipidemia, unspecified; K31.84 Gastroparesis; E11.22 Type 2 diabetes mellitus with diabetic chronic kidney disease; N18.9 Chronic kidney disease, unspecified; I48.91 Unspecified atrial fibrillation; I25.10 Atherosclerotic heart disease of native coronary artery without angina pectoris; D64.9 Anemia, unspecified; I95.9 Hypotension, unspecified; F19.959 Other psychoactive substance use, unspecified with psychoactive substance-induced psychotic disorder, unspecified; T38.0X5A Adverse effect of glucocorticoids and synthetic analogues, initial encounter; Y92.89 Other specified places as the place of occurrence of the external cause; Z90.49 Acquired absence of other specified parts of digestive tract; Z68.30 Body mass index [BMI] 30.0-30.9, adult; I25.2 Old myocardial infarction; Z95.5 Presence of coronary angioplasty implant and graft; Z79.4 Long term (current) use of insulin; Z79.899 Other long term (current) drug therapy; Z88.2 Allergy status to sulfonamides
CPT/HCPCS: 10045; 10047

== ENCOUNTER → 2018-04-15 | Outpatient (CLI) | payer OTHER ==
[~2018-04-15] MED LIST changes: +BASAGLAR K100 UNIT/1 SUBQ; +NOVOLOG100 UNIT/1 SUBQ
== END ==
LOC: RAD 11:10
DX: J90 Pleural effusion, not elsewhere classified (principal); J69.0 Pneumonitis due to inhalation of food and vomit; R05 Cough

== ENCOUNTER 2018-05-03 15:17 | Inpatient (IN) | payer OTHER ==
[~2018-05-03] VITALS: Ht 152.4 cm; Wt 0.5 kg
--- NOTE | ~2018-05-03 | D ---
[facility] [place] [address] [place] [address] DISCHARGE SUMMARY Name: SANAZ VALERIO Room #: 464-P ADM IN M.R.#: [id number] Admission: 05/03/18 Attend Phys: Greg Ramon MD Discharge: Date of : 35 Report #: [id number] THIS REPORT FOR: //name// CC: Edwardo Stevenson MD SUMMARY OF HISTORY AND PHYSICAL: Please see the dictated history and physical for details. The patient has a new onset of rheumatoid lung disease beginning in 01/2018, initially managed with steroids because of Actemra not being effective for her rheumatoid lung disease. She was able to start Rituxan, with initial infusion on 04/16/2018 and second infusion on 05/01/2018. Unfortunately, she has had many side effects from corticosteroids that had been managing her lung disease from January until the Rituxan started and Solu-Medrol was part of the Rituxan infusion protocol. She developed skeletal myopathy and steroid psychosis as well as elevated blood sugars from the corticosteroids. At home, she became too weak to stand up in order to transfer from her chair to commode. She has had long periods of time without urinating and she became more psychotic with confusion and not being able to cooperate. When she developed edema and her legs began oozing fluid, it was clear that she had failed home therapy for the complications of the corticosteroids and required hospital stay. SUMMARY OF HOSPITAL COURSE: When she was admitted, she had 3+ edema to the knees in both legs along with edema in the feet and oozing of clear serous fluid from the feet. In the hospital, she was managed on intravenous Lasix 40 mg daily. She was also managed with lymphedema wraps and was followed by the Wound Care Service. Her leg edema improved significantly. She was seen in Psychiatry consultation and the psychiatrist agreed with the use of quetiapine/Seroquel for her steroid-induced psychotic behavior. She responded well to Seroquel and on Seroquel XR 150 mg at bedtime, she slept well at night and remained oriented and cooperative the following day. She was followed by the Wound Care Service and significant improvement was noted on several of her skin wounds. Serous-filled blisters on both great toes were noted without signs of infection and were significantly improved at the time of discharge and unstageable decubitus ulcer in the left buttock that was present on admission had nearly resolved and bilateral lower extremity edema, most likely from venous insufficiency, was also much improved according to the marketing development specialist the day before discharge. She was seen in Pulmonary consultation by Dr. Bay Marsh, who agreed with the current therapy. He noted there were persistent bilateral yyxm-zu-fbmpxwlg pleural effusions on her pulmonary CT scan and agreed with diuresis to benefit these as well. [address] [address] DISCHARGE SUMMARY Name: SANAZ VALERIO Room #: 464-P ADM IN M.R.#: [id number] Admission: 05/03/18 Attend Phys: Greg Ramon MD Discharge: Date of : 35 Report #: [id number] A couple of days before discharge, her creatinine had risen from 1.1 to 1.5 and her furosemide was held. She had been taking warfarin 2.5 mg every day at home and in the hospital, after several days of the 2.5 mg, the next 3 days, her INR remained therapeutic at 2.1, without requiring further dosing. SUMMARY OF LABORATORY DATA: The potassium was low at 3.2 midway through the hospital stay and was replaced. Creatinine was 1.1 on admission and 1.5 the day before discharge. Fingerstick blood sugars varied from 90 to 242 on a moderate-dose insulin sliding scale. Magnesium remained normal at 1.8. Albumin was 2.3 on admission, qualifying for severe malnutrition. Oxygen saturations remained adequate on room air while in the hospital. Free T4 was low at 0.6 and TSH was elevated at 43.65 and her thyroid replacement was increased. It was noted that she had been on amiodarone that was discontinued in January and this was the reason for requiring a change in her thyroid replacement. Inflammation markers: On admission, sed rate was 80 and CRP was 53.5. Urinalysis showed 2+ glucose and was otherwise negative. Arterial blood gas on room air showed a pH of 7.534, pCO2 was 26 and the pO2 was 74.2. Base excess was 0. RADIOLOGIC DATA: Arterial ultrasound of both lower extremities was normal. Chest x-ray showed interstitial fibrotic changes and was not much changed from 04/15/2018. High-resolution CT chest without contrast continued to show chronic interstitial changes with ground-glass appearance, but the infiltrative changes were improved in the right upper lobe area when compared with 03/18/2018. There was a slight increase in bilateral nujt-ds-uxggqzhf pleural effusions when compared to 03/18/2018. Severe atherosclerotic changes along with coronary artery disease were seen. Fluid in the esophagus was felt to represent reflux. ASSESSMENT: 1. Multiple symptomatic side effects of corticosteroid therapy. 2. 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 3. 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 4. Severe malnutrition with albumin of 2.3 on admission. [facility] [address] [place] [address] DISCHARGE SUMMARY Name: SANAZ VALERIO Room #: 464-P ADM IN .R.#: [id number] Admission: 05/03/18 Attend Phys: Greg Ramon MD Discharge: Date of : 35 Report #: [id number] 5. Bilateral utrt-si-hjnyqwjv pleural effusions persist. 6. Rheumatoid lung disease, with localized improvement noted in the right upper lobe area on high-definition noncontrast CT scanning. 7. Bronchiectasis was also noted on CT. 8. Fluid-filled esophagus was noted and a degree of gastroparesis was identified on previous admissions. 9. Hypothyroidism - dose was increased. 10. Mild chronic kidney disease with an increase in creatinine from 1.1 to 1.5 that accompanied the diuresis. 11. Multiple skin injuries were improved. Venous insufficiency in the legs with fluid oozing from the feet was much improved. A left lateral gluteal ulcer was almost completely resolved. PLAN: The patient is [facility] facility. PHYSICIAN ORDERS: 1. Torsemide 20 mg daily. 2. Basic metabolic profile, CBC and INR on Mondays, Wednesdays and Fridays. 3. Warfarin 2.5 mg on Mondays, Wednesdays and Fridays. 4. Prednisone 15 mg daily until 05/14/2018, then 10 mg daily from 05/14/2018 to 05/28/2018. 5. Follow up with Dr. Thomas on 05/28/2018 to consider further lowering of the prednisone. 6. Should shortness of breath develop, the patient is to have nasal oxygen. Prednisone is not to be increased. 7. Physical therapy initially so she can stand to transfer from the bed to commode, ultimately to return walking. She will need extra therapy and exercises in the afternoon and in the evening hours when the Therapy Department itself is closed. 8. Moderate-dose sliding scale insulin. 9. Ipratropium/albuterol twice daily. Flutter valve twice daily following the treatments . 10. Aspirin 81 mg daily. 11. Atenolol 50 mg twice daily. 12. Pulmicort Respules 0.5 mg twice daily by nebulizer. 13. Compounded silver sulfadiazine 30 grams with morphine sulfate 3 mg to apply to the wounds once or twice daily. 14. Diclofenac gel 2 g 4 times a day as needed for joint pain. 15. Diltiazem CD 240 mg in the morning daily. 16. Levothyroxine 50 mcg daily. 17. Melatonin 10 mg at bedtime. 18. Nystatin suspension 5ml swish and swallow 4 times a day; if not available then use Clotrimazole Denilson 10 mg 4 times daily for thrush. 19. Oxycodone IR 5 mg every 4 hours as needed for pain. 20. Pantoprazole 40 mg before breakfast and before the evening meal. 21. Potassium chloride 20 mEq daily at 07:00. [address] [address] DISCHARGE SUMMARY Name: SANAZ VALERIO Room #: 464-P [facility] IN M.R.#: [id number] Admission: 05/03/18 Attend Phys: Greg Ramon MD Discharge: Date of : 35 Report #: [id number] 22. Quetiapine 25 mg every 4 hours as needed for steroid psychosis. 23. Quetiapine XR 150 mg at bedtime. This is for the diagnosis of steroid induced psychosis and she's still on steroids. Do not stop this medication. 24. She is to have protein supplements to maximize her protein intake. Use Ensure pudding with every meal. 25. Zinc sulfate 50 mg once daily for nutrition. 26. Oxygen at 2 liters if O2 sats are under 91%. REFERRALS: She is to have an appointment with Dr. Edwardo Thomas on 05/28/2018. She is to see me in my office a few days after she returns home. By: [id number] Greg Ramon MD /nt
--- NOTE | ~2018-05-03 | HC ---
[place] [address] [place] [address] CONSULTATION Name: SANAZ VALERIO Room #: 464-P ADM IN M.R.#: [id number] Admission: 05/03/18 Attend Phys: Greg Ramon MD Discharge: Date of : 35 Report #: [id number] THIS REPORT FOR: //name// CC: Greg Ramon HISTORY OF PRESENT ILLNESS: The patient is an 83-year-old female who has been seen at [facility] in the past reportedly for steroid-induced psychosis that was managed well on Seroquel. The patient presents to the hospital after again struggling with complications to steroids. She has not been taking care of herself at home. She has longstanding history of rheumatoid interstitial pneumonitis and she needs the steroid doses to manage that condition, but then she develops complications secondary to corticosteroids. She also has had diabetes, thrush, edema. This is well summarized in Dr. Ramon's note. The patient today is denying that she has any psychosis. She is irritable with me that I am a psychiatrist talking with her saying that she is crazy. I tried to reassure her that our goal was to help her medical condition and effects of medication. She is denying that she has any paranoia or delusional experiences. She is fairly reserved though. PAST MEDICAL HISTORY: Again has rheumatoid arthritis and complications secondary to that, needing steroid use. She has history of atrial fibrillation, on anticoagulation, history of an [place] in 1999, stent to the LAD in 2006, diastolic heart failure and hypertension, GERD, thoracolumbar spine disease, dorsal kyphosis, scoliosis, chronic back pain. PAST SURGICAL HISTORY: History of appendectomy, total knee replacement, ovarian cyst removal, and cholecystectomy. SOCIAL HISTORY: Lives with family. Her several years ago. No drinking, no smoking, good support. ALLERGIES: Some adverse effect of olanzapine, but no true allergy. SULFA is an allergy. MEDICATIONS PRIOR TO ADMISSION: Include prednisone after going to round of other steroids as well, levothyroxine, ranitidine, vitamin D, oxycodone, warfarin, melatonin and she had been on Seroquel 25 mg in the past. FAMILY PSYCHIATRIC HISTORY: Noncontributory. MENTAL STATUS EXAMINATION: The patient is alert. She is oriented to being at [facility], knows who her primary care physician is, understands that she has basic conditions. She was able to tell me she has rheumatoid arthritis and the complications of her lungs, needing medications for these. Her affect is restricted. Mood is irritable. Thought process is concrete. Thought content: She is denying delusions or perceptual disturbances, but she has had [facility] [address] [facility] [place] [address] CONSULTATION Name: SANAZ VALERIO Room #: 464-P [facility] IN M.R.#: [id number] Admission: 05/03/18 Attend Phys: Greg Ramon MD Discharge: Date of : 35 Report #: [id number] some effects from the steroids that have implied a psychotic reaction. Affect is restricted range. Insight and judgment is fair at this point, but has periods of impairment. Appearance is appropriate. Intermittent eye contact, brief speech. Attention and concentration are variable. IMPRESSION: AXIS I: Psychosis. AXIS II: Deferred. AXIS III: As above. AXIS IV: Severe. AXIS V: Global Assessment of Functioning currently 50%. PLAN: At this point, we would continue as you are doing. If the Seroquel has been a good medication for her in the past, I think you have dosed it correctly in the past and currently at 37.5 mg is fine and that the 25 mg p.r.n. is appropriate. We will continue to follow this response. I think it is too soon to changes or increase it. She has only had one dose of the as needed dose, so we will follow the patient how she responds to this approach. Thank you for the consultation. If anything further, give us a call for any acute issue, but we will be following along again on Sunday and see how the weekend went. Thank you for the consultation. By: [id number] Bryce Bagley MD /nina
--- NOTE | ~2018-05-03 | H ---
[facility] [place] [address] [place] [address] HISTORY AND PHYSICAL Name: SANAZ VALERIO Room #: 464-P ADM IN M.R.#: [id number] Admission: 05/03/18 Attend Phys: Greg Ramon MD Discharge: Date of : 35 Report #: [id number] THIS REPORT FOR: //name// CC: Greg Ramon DATE OF SERVICE: 05/03/2018 CHIEF COMPLAINT: Steroids psychosis, recurrent steroid-induced leg edema with skin of the the feet ooziing fluid, and other side effects of steroids. HISTORY OF PRESENT ILLNESS: This is one of several [facility] admissions for this 83-year-old white female with longstanding rheumatoid arthritis, well managed on Actemra until she developed presumed rheumatoid interstitial pneumonitis in January of this last year. Her hypoxemia and chest x-ray findings of interstitial pneumonitis responded well to intravenous methylprednisolone followed by prednisone, but she developed multiple complications from the corticosteroids: She developed psychosis that responded to dose reduction of the corticosteroids, as well as to quetiapine, diabetes, thrush and Hoa esophagitis, and marked edema of the lower legs that developed to the point of oozing fluid. Most recently, she started Rituxan with an infusion on the 04/16 and her second infusion on 05/01/2018. A week after the infusion of 04/16, she developed marked leg muscle weakness, and had an elevated CPK showing a steroid myopathy from 125 mg of Solu-Medrol that accompanied Rituxan infusion. Her second Rituxan infusion was 3 days ago on 05/01, she has had difficulty since then, and redeveloped edema with oozing from skin of her feet. For this reason, inpatient hospitalization is indicated. More recently, she has been taking prednisone 15 mg a day and has been able to stay off of oxygen. At home, with her steroids psychosis, it has been difficult for her to eat or drink properly, she has been confused and has refused to get on the commode, has gone prolonged periods of time without voiding. She has been very carefully and attentively managed at home by her family, but the recurrence of fluid oozing from her edematous feet triggered this hospital stay. PAST MEDICAL HISTORY: In January, she developed diffuse pneumonitis with hypoxemia. Diagnostic bronchoscopy to rule out opportunistic infection showed normal findings on direct visualization with the bronchoscope and the bronchoalveolar lavage studies were negative. Amiodarone was discontinued, and her atrial fibrillation determined to be premanent. Hypoxemia responded to corticosteroid therapy. EGD showed diffuse Hoa esophagitis and gastritis. Barium swallows showed classic tertiary contractions of presbyesophagus. She has permanent atrial fibrillation, now with rate control and warfarin for anticoagulation. She had an anterior wall myocardial infarction [place] [address] HISTORY AND PHYSICAL Name: SANAZ VALERIO Room #: 464-P [facility] IN M.R.#: [id number] Admission: 05/03/18 Attend Phys: Greg Ramon MD Discharge: Date of : 35 Report #: [id number] 1999, and underwent a stent to the LAD in 2006. She has diastolic heart failure with bavp-ar-ukyuqrxl aortic insufficiency. She has hypertension. She has had rheumatoid arthritis for many years, well managed with disease-modifying agents. For the last several years, it has been Actemra until recently switched to Rituxin. She has had severe esophageal reflux disease symptoms, and developed significant torticollis, presumed to be from prolonged metoclopramide therapy. Torticollis showed some response to discontinuation of the medication and Botox injections. She has chronic thoracolumbar spine disease with dorsal kyphosis and scoliosis and chronic back pain, well managed with low doses of oxycodone. She has glaucoma listed in her medical record. PAST SURGICAL HISTORY: She has had an appendectomy, cholecystectomy, total knee replacement and ovarian cyst removal in the past. SOCIAL HISTORY: She lives with her son and his family since her several years ago. She does not drink nor smoke. She wishes a full resuscitation being made initially. ALLERGIES: She has a variable withdrawal from OLANZAPINE as an individual dose wears off giving way to excessive confusion and excitability. SULFA is listed as another allergy. HOME MEDICATIONS: Prednisone 15 mg in the morning, 81 mg aspirin, atenolol 50 mg twice daily, diltiazem CD 240 mg once in the morning, levothyroxine 25 mcg 2 pills on Wednesdays, vitamin D 2000 IU, ranitidine 150 mg twice daily and oxycodone 5 mg twice daily, warfarin 2.5 mg in the evening, melatonin 5 mg to help with sleep, and Jardiance 25 mg was recently put on hold because her blood sugars were low, since she stopped eating due to her steroid psychosis. Quetiapine 25 mg has been effective for improving her psychosis, and is not excessively sedating. REVIEW OF SYSTEMS: Listed in the HPI above. OBJECTIVE: GENERAL: The patient was examined in the presence of her ceskdlcl-zd-ida. She is intermittently confused and then oriented. HEENT: She complained of a sore mouth, and the oropharynx is dry with fine spotted for white patches of recurrent thrush present in the posterior pharynx. NECK: Negative. [facility] [address] [place] [address] HISTORY AND PHYSICAL Name: SANAZ VALERIO Room #: 464-P [facility] IN Keri#: [id number] Admission: 05/03/18 Attend Phys: Greg Ramon MD Discharge: Date of : 35 Report #: [id number] LUNG: Galvan are clear with only an extremely rare wheeze or extra sound. CARDIOVASCULAR: S1 and S2 are normal and the rhythm is irregularly irregular with the heart rate in the middle 80s. ABDOMEN: Soft, nontender and obese. EXTREMITIES: She was examined, sitting in a wheelchair. Below the knee, there is prominent 2+ soft edema to the mid calf. Both feet have diffuse edema including the toes. On the top of both feet, there are areas where serous fluid is oozing through the skin. There are several healed abrasions present. ASSESSMENT: 1. Multiple side effects of corticosteroid therapy. 2. 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 4. Edema and oozing of fluid in the lower extremities. 5. Steroid-induced insulin-dependent diabetes. 6. Interstitial lung disease, developed in January, presumed to be rheumatoid lung, responds to corticosteroids. 7. Permanent atrial fibrillation. 8. Stable chronic kidney disease. 9. Rheumatoid arthritis, currently initiating therapy with Rituxan. 10. GI dysmotility - there is fluid in the esophagus seen on CT of the chest. 10. Other medical problems as listed above. PLAN: The patient is started on intravenous Lasix and is to have her legs elevated. Quetiapine has been successful to make her psychosis more manageable, and is being given on this hospital stay. Psychiatry consultation will be requested for assistance. Her legs are being elevated to help reduce the swelling and serous fluid oozing from her legs. Pulmonary consult to re-evaluate her intersisital lung disease. By: [id number] Greg Ramon MD /nt
--- NOTE | ~2018-05-03 | H ---
[facility] [place] [address] HISTORY AND PHYSICAL Name: SANAZ VALERIO Room #: 464-P ADM IN M.R.#: [id number] Admission: 05/03/18 Attend Phys: Greg Ramon MD Discharge: Date of : 35 Report #: [id number] THIS REPORT FOR: //name// CC: Greg Ramon DATE OF SERVICE: 05/03/2018 CHIEF COMPLAINT: Side effects of corticosteroids, most notably psychosis and recurrence of marked edema and oozing of fluid in the legs. DICTATION ENDS HERE. By: [id number] Greg Ramon MD /nt
[2018-05-03] MEDS ORDERED: JARDIANCE10 MG PO (15:52)
[2018-05-03 16:06] LABS: HEMATOCRIT 36.5 % (37.0-47.0); HEMOGLOBIN 11.9 gm/dL (12.0-15.0); MCH 29.6 pg (26.0-34.0); MCHC 32.6 g/dL (28.0-37.0); MCV 90.8 fL (80.0-100.0); RBC 4.03 mil/uL (4.20-5.00); RDW 21.7 % (10.5-14.5)
[2018-05-03 16:30] LABS: ALBUMIN 2.3 g/dL (3.4-5.0); CALCIUM 8.6 mg/dL (8.5-10.1); CREATININE 1.1 mg/dL (0.6-1.0); POTASSIUM 4.2 mmol/L (3.5-5.1); TOTAL PROTEIN 6.4 g/dL (6.4-8.2)
[2018-05-03 18:26] LABS: PROTIME 20.6 Seconds (9.3-11.4)
--- NOTE | 2018-05-03 18:34 | NUR ---
PT ARRIVED ON UNIT LATE THIS AFTERNOON FROM HOME. ADMISSION HX, ASSESSMENT AND EDUCATION COMPLETE. PT EXTREMELY CONFUSED AND AGITATED, MEDICATION GIVEN. PT REFUSES TO [employer]REE AND SHRUB WORKER ORDER TO TRANSFER TO [facility] OR CHAIR. FAMILY PRESENT. WILL CONTINUE TO MONITOR.
[2018-05-03 19:23] VITALS: BP 109/64
[2018-05-03 20:08] LABS: URINE BILIRUBIN NEGATIVE (Negative); URINE BLOOD NEGATIVE (Negative); URINE CLARITY CLEAR; URINE COLOR YELLOW; URINE GLUCOSE-RANDOM* 2+ (Negative); URINE KETONES NEGATIVE (Negative); URINE LEUKOCYTES-REFLEX NEGATIVE (Negative); URINE NITRITE-REFLEX NEGATIVE (Negative); URINE PROTEIN (DIPSTICK) NEGATIVE (Negative); URINE SPECIFIC GRAVITY 1.015 (1.005-1.035); URINE UROBILINOGEN 0.2 E.U./dl (0.2-1.0)
[2018-05-03 23:08] LABS: GLYCOHEMOGLOBIN (HGB A1C) 6.3 % (4.8-5.6)
--- NOTE | 2018-05-04 03:04 | NUR ---
PT AGITATED BEGGINING OF SHIFT PT GIVEN SLEEPING MED PT WAS ABLE TO SLEEP MOST OF THE NIGHT PT CONFUSED BUT NOT IMPULSIVE.
[2018-05-04 04:08] VITALS: BP 151/76
[2018-05-04 05:26] LABS: HEMATOCRIT 34.5 % (37.0-47.0); HEMOGLOBIN 11.8 gm/dL (12.0-15.0); MCH 29.8 pg (26.0-34.0); MCHC 34.2 g/dL (28.0-37.0); MCV 87.1 fL (80.0-100.0); RBC 3.97 mil/uL (4.20-5.00); RDW 21.3 % (10.5-14.5); WBC 10.3 thou/uL (4.0-11.0)
[2018-05-04 05:37] LABS: INR 1.7; PROTIME 17.8 Seconds (9.3-11.4)
[2018-05-04 05:42] LABS: ALBUMIN 2.3 g/dL (3.4-5.0); CALCIUM 8.2 mg/dL (8.5-10.1); MAGNESIUM 1.9 mg/dL (1.8-2.4); POTASSIUM 3.5 mmol/L (3.5-5.1); TOTAL BILIRUBIN 0.9 mg/dL (<0.1-1.0); TOTAL PROTEIN 5.5 g/dL (6.4-8.2)
[2018-05-04 08:18] VITALS: BP 108/86
[2018-05-04 14:20] VITALS: BP 94/66
--- NOTE | 2018-05-04 14:45 | NUR ---
TOWARDS POC PT A/O X1. PT IS AGITATED AT TIME. PRN PAIN MEDS GIVEN. MARY KAY WRAP ON LEGS PROVIDED. WILL CONTINUE TO MONITOR. FALL RISK IN PLACE.
[2018-05-04 15:24] LABS: BE(vivo) 0 mmol/L (-2 to +3); HCO3 21.6 mmol/L (22.0-26.0); PCO2 26.2 mmHg (35.0-45.0); PO2 74.2 mmHg (80.0-100.0); pH 7.534 (7.360-7.450); sO2 96.5 % (92.0-98.0)
--- NOTE | 2018-05-05 01:57 | NUR ---
PT SLEPT MOST OF THE NIGHT PT WAS NOT IMPULSIVE VS STABLE PT TAKEN TO THE BEDSIDE COMMODE MULTIPLE TIMES TO VOID DURING THE NIGHT.
[2018-05-05 04:13] VITALS: BP 123/52
[2018-05-05 05:17] LABS: HEMATOCRIT 29.6 % (37.0-47.0); HEMOGLOBIN 9.9 gm/dL (12.0-15.0); MCH 29.4 pg (26.0-34.0); MCHC 33.5 g/dL (28.0-37.0); MCV 87.7 fL (80.0-100.0); RBC 3.37 mil/uL (4.20-5.00); RDW 21.6 % (10.5-14.5); WBC 10.9 thou/uL (4.0-11.0)
[2018-05-05 05:20] LABS: INR 1.8; PROTIME 18.7 Seconds (9.3-11.4)
[2018-05-05 05:22] LABS: CALCIUM 8.5 mg/dL (8.5-10.1); CREATININE 1.1 mg/dL (0.6-1.0); MAGNESIUM 1.8 mg/dL (1.8-2.4); POTASSIUM 3.5 mmol/L (3.5-5.1)
[2018-05-05 07:48] VITALS: BP 128/51
--- NOTE | 2018-05-05 14:07 | NUR ---
ASSUMED CARE AT 0700. ALERT AND ORIENTED TO HERSELF. SEEN BY AT BEDSIDE. BETTER MENTATION NOTED PER MD. 4PPL ASSIST TO BEDSIDE COMMODE. BEING TX FOR FUNGAL INFECTION TO CHEST AND ULE. BLE WRAPS REENFORCED WITH MARY KAY. NECK PAIN WITH VOLTERAN GEL. BLE AND PEDAL EDEMA NOTED. NO S/S ACUTE DISTRESS NOTED OR REPORTED AT THIS TIME. WILL CONT TO MONITOR FOR ANY CHANGES IN CONDITION.
[2018-05-05 15:47] VITALS: BP 123/65
[2018-05-05 19:45] VITALS: BP 133/49
[2018-05-06 04:14] VITALS: BP 108/80
[2018-05-06 05:40] LABS: HEMATOCRIT 31.7 % (37.0-47.0); HEMOGLOBIN 10.5 gm/dL (12.0-15.0); MCH 29.1 pg (26.0-34.0); MCHC 33.1 g/dL (28.0-37.0); RBC 3.6 mil/uL (4.20-5.00); RDW 21.7 % (10.5-14.5); WBC 10.4 thou/uL (4.0-11.0)
[2018-05-06 05:54] LABS: INR 2.6; PROTIME 26.9 Seconds (9.3-11.4)
[2018-05-06 06:04] LABS: CALCIUM 8.3 mg/dL (8.5-10.1); CREATININE 1.2 mg/dL (0.6-1.0); POTASSIUM 3.2 mmol/L (3.5-5.1)
[2018-05-06 07:09] VITALS: BP 127/104
--- NOTE | 2018-05-06 14:14 | NUR ---
PT ADMITTED RELATED TO CELLULITITS. CM REVIEWED CHART AND SPOKE WITH CARE TEAM. CM MET WITH PT AT BEDSIDE THIS DAY. PT IS A&O X4. CM ROLE INTRODUCED. PT INDICATED SHE LIVES IN A HOUSE WITH HER SON AND DTR IN LAW. PT INDICATED SHE HAD USED A FWW TO ASSIST WITH MOBILITY PAINT MIXER. PT INDICATED SHE HAD BEEN ON HOME HEALTH SERVICES PAINT MIXER. NURSE JULIO HAD RECIEVED FAX INDICATIING THAT PT HAD BEEN ON SERVUCE FOR PT OT AND NURSING WITH [facility]. PT INDICATED SHE PLANS TO RETURN HOME ONCE MEDICALLY STABLE. CM CALLED PT'S DTR IN LAW [facility] AND LEFT A VM TO CONFIRM PLOF AND DC PLANNING. CM TO FOLLOW INDICATED WITH DC PLANNING.
--- NOTE | 2018-05-06 14:43 | NUR ---
WOUND CONSULT: PT. WAS SEEN TODAY BY DR. MATTHEWS AND MYSELF. PT. HAS AN UNSTAGABLE PRESSURE ULCER TO HER LEFT BUTTOCK. PT. ALSO SUFFERES FROM SWELLING TO HER BILATERAL LOWER EXTREMTIYS. SHE HAS BLISTERS TO THE TOP OF HER LEFT AND RIGHT FEET. RECOMMENDATIONS: SILVADENE/MORPHINE CREAM MIXED WITH MOISTURE BARRIER TO LEFT BUTTOCK SILVADENE/MORPHINE CREAM, XEROFORM, ABD, KERLIX, MARY KAY, TO BOTH LEFT AND RIGHT FEET. WRAP FROM TOES TO KNEE. PT. AND STAFF NURSE WERE INSTRUCTED ON PLAN OF CARE.
[2018-05-06 14:53] VITALS: BP 103/66
--- NOTE | 2018-05-06 16:42 | NUR ---
CM HEARD BACK FORM PT'S DTR IN LAW SHE CONFIRMED PT'S PLOF AND LIVING ARRANGEMENTS. SHE INDICATED THAT IS A POST ACUTE CARE STAY IS NEEDED THEY WOULD BE INTERESTED IN LOOKING AT [facility]. REFERRAL TO BE SENT. CM TO FOLLOW INDICATED WITH DC PLANNING.
[2018-05-07 02:55] VITALS: BP 116/60
[2018-05-07 06:03] LABS: INR 2.4; PROTIME 25.1 Seconds (9.3-11.4)
[2018-05-07 06:04] LABS: CALCIUM 8.4 mg/dL (8.5-10.1); CREATININE 1.4 mg/dL (0.6-1.0); POTASSIUM 3.4 mmol/L (3.5-5.1)
--- NOTE | 2018-05-07 07:39 | NUR ---
PROGRESS PT A/O X4 UP WITH MAX OF 2 TO 3 GAIT BELT AND WALKER, DOESNT BEAR WEIGHT WELL ON HER SWOLLEN FEET, VERY UNSTEADY AND UNSURE OF HERSELF. REFUSES TO GET IN CHAIR, UP TO BSC X 1 TO VOID, INCONTINENT AT TIMES IF SHE WAITS TO LONG TO TOLIET. DENIES PAIN AT THIS TIME. CONTIUE TO MONITOR
[2018-05-07 07:46] VITALS: BP 98/63
--- NOTE | 2018-05-07 11:20 | NUR ---
DP SENT REFERRAL TO [facility] , VOLODYMYR FROM [facility] SAID THEY CAN'T TAKE BECAUSE OF INSURANCE.
[2018-05-07 11:30] VITALS: BP 126/70
--- NOTE | 2018-05-07 12:32 | NUR ---
WOUND FOLLOW UP: PT. WAS SEEN TODAY BY DR. RICHARDS AND MYSELF. PT. WOUNDS ARE RESPONDING WELL TO CURRENT THERAPY. RECOMMENDATIONS: CONTINUE WITH CURRENT PLAN OF CARE. PT. AND STAFF NURSE WERE INSTRUCTED ON PLAN OF CARE.
--- NOTE | 2018-05-07 13:25 | NUR ---
REFERRAL WAS SENT TO [facility] AND THEY INDICATED THAT THEY AREN'T TALKING PT'S WITH HER INSURANCE THEY AREN'T GETTING PAID BY THEM. CM CALLED AND NOTIFIED PT'S DTR-IN-LAW AND SHE INDICATED SHE WOULD LIKE REFERRAL SENT TO [facility] FOR REVIEW. CM TO FOLLOW INDICATED WITH DC PLANNING.
--- NOTE | 2018-05-07 15:06 | NUR ---
PT STABLE THROUGHOUT SHIFT. PT HAD BETTER APPETITE AND WAS MORE COOPERATIVE IN MOVING ABOUT THAN PAST COUPLE OF DAYS. PT C/O PAIN, TREATED WITH MEDICATION. PT RESTING COMFORTABLY.
--- NOTE | 2018-05-07 15:17 | NUR ---
Nutrition: Consult received due to unstageable pressure ulcers/ bilateral feet wounds. Stable weights and fair appetite. Observed 50% intake of lunch today and enjoys glucerna drink which is ordered BID. Pt is blind but feeds self with set-up assistance. Discussed protein needs with pt. Low nutrition risk.
[2018-05-07 21:25] VITALS: BP 99/51
--- NOTE | 2018-05-08 05:14 | NUR ---
Assumed care at 1845. Pt resting in chair with family memembers at bedside. Changed dressing on both legs. Pt denies pain. Pt is up with x2 assistance. She used a bedside commode. I.V site CDI. No identified needs at the moment. Chair alarm in on. No identified needs at the moment. Will continue to monitor.
[2018-05-08 05:54] VITALS: BP 104/60
[2018-05-08 06:49] LABS: INR 2.5; PROTIME 26.1 Seconds (9.3-11.4)
[2018-05-08 06:51] LABS: CALCIUM 8.4 mg/dL (8.5-10.1); CREATININE 1.5 mg/dL (0.6-1.0); MAGNESIUM 1.8 mg/dL (1.8-2.4); POTASSIUM 4.3 mmol/L (3.5-5.1)
--- NOTE | 2018-05-08 08:58 | HC ---
[facility] [place] [address] [place] [address] CONSULTATION Name: SANAZ VALERIO Room #: 464-P ADM IN M.R.#: [id number] Admission: 05/03/18 Attend Phys: Greg Ramon MD Discharge: Date of : 35 Report #: [id number] THIS REPORT FOR: //name// CC: Greg Ramon DATE OF SERVICE: 05/06/2018 PERSONAL PHYSICIAN: Greg Ramon MD CHIEF COMPLAINT: Lower extremity edema with blisters on her great toes as well as an unstageable decubitus ulcer on her left buttock. HISTORY OF PRESENT ILLNESS: This is an 83-year-old white female, who is a fairly poor historian, who was admitted for increasing shortness of breath and lower extremity swelling. The patient has underlying history of rheumatoid arthritis and is on steroids for that as well as Rituxan. The patient states she has had chronic edema in her lower extremities. The patient states that the blisters on her toes started within the past couple of days. The patient states that she is unsure how long the ulceration on her left buttock has been present. The patient states the left buttock ulceration does cause her some mild to moderate pain. The patient denies pain in her lower extremities. We have been asked to follow the wounds while she is here. PAST MEDICAL HISTORY: Significant for pneumonitis, atrial fibrillation for which she is on Coumadin, previous history of myocardial infarction, chronic diastolic heart failure, aortic insufficiency and hypertension as well as the rheumatoid arthritis, chronic back pain. CURRENT MEDICATIONS: Multiple, I reviewed the patient's medication list. DRUG ALLERGIES: SULFA. SOCIAL HISTORY: The patient lives with her son. Does not smoke or drink alcohol. FAMILY HISTORY: Not pertinent to current medical condition. REVIEW OF SYSTEMS: CONSTITUTIONAL: The patient denies fevers or chills. NEUROLOGIC: The patient complains of generalized weakness, but no isolated weakness in arms or legs. EYES: No complaints. ENT: The patient complains of mild sore throat, but no difficulty swallowing. CARDIAC: The patient has chronic lower extremity edema, but denies chest pain or palpitations at this time. RESPIRATORY: The patient complains of cough, nonproductive in nature with [facility] [address] [place] [address] CONSULTATION Name: SANAZ VALERIO Room #: 464-P [facility] IN M.R.#: [id number] Admission: 05/03/18 Attend Phys: Greg Ramon MD Discharge: Date of : 35 Report #: [id number] associated mild shortness of breath. GASTROINTESTINAL: The patient denies nausea, vomiting or abdominal pain. GENITOURINARY: The patient denies urgency or frequency. MUSCULOSKELETAL: The patient has chronic back pain. SKIN: There are blisters on bilateral great toes as well as an unstageable decubitus ulcer on left buttock. PHYSICAL EXAMINATION: VITAL SIGNS: Temperature 36.7, pulse 104, respirations 20, BP 126/70. GENERAL: This is a chronically ill-appearing white female who is in no obvious distress. HEENT: Normocephalic and atraumatic. Mucous membranes are somewhat dry. Pupils are round. Sclerae are white. NECK: Supple, without JVD. LUNGS: Diminished breath sounds heard throughout with occasional scattered wheeze. HEART: Irregularly irregular with a 2/6 systolic ejection murmur. ABDOMEN: Obese, soft, otherwise nontender. EXTREMITIES: The patient has 2+ edema bilateral lower extremities. There are fluid filled blisters on both great toes, which are serous and do not appear to be infected. Distal pulses are 1+; however, this might be partially diminished secondary to the edema. Bilateral heels are intact. No other associated ulcerations are noted on the foot or toes. SKIN: Evaluation of left gluteal region reveals unstageable decubitus ulcer with 100% slough. Periwound is mildly erythematous. It is tender to palpation. There is no significant depth. There is no undermining or tunneling. There is minimal serosanguineous drainage noted without odor. NEUROLOGIC: Cranial nerves 2-12 grossly intact. Motor and sensory grossly intact. LABORATORY DATA: White count 10.4, hemoglobin 10.5, C-reactive protein is 54. Albumin is 2.3. IMPRESSION: 1. Serous filled blisters on bilateral great toes, dorsal aspect without signs of infection. 2. Unstageable decubitus ulcer of left buttock, present on admission. 3. Bilateral lower extremity edema, most likely secondary to venous insufficiency. 4. Rheumatoid arthritis. 5. Protein calorie malnutrition, severe, albumin of 2.3. 6. Generalized debility. 7. Hypertension. PLAN: 1. At this time, we will start the patient on morphine, Silvadene cream to the [address] [address] CONSULTATION Name: SANAZ VALERIO Room #: 464-P [facility] IN M.R.#: [id number] Admission: 05/03/18 Attend Phys: Greg Ramon MD Discharge: Date of : 35 Report #: [id number] buttocks and toes. Toes will be covered with Xeroform. This will be done twice daily. We will wrap the legs from toes to knee with Kerlix and Andrews and have her elevate her legs as much as possible. 2. We will maximize the patient's oral protein supplementation for healing. We will utilize physical and occupational therapy for strengthening. Continue all other current medications. We will also continue to follow the patient while she is here. I appreciate the ability to consult. <ELECTRONICALLY SIGNED> By: Jose C Killian MD 05/08/18 0858 [id number] Jose C Killian MD /nt
[2018-05-08 09:00] VITALS: BP 106/51
--- NOTE | 2018-05-08 12:09 | NUR ---
[facility] pt pending insurance auth. They have submitted for auth for admission today or tomorrow pending medical clearance. Care team updated. Pt and dtr in law updated.
--- NOTE | 2018-05-08 14:00 | NUR ---
WOUND FOLLOW UP: PT. WAS SEEN TODAY BY DR. MATTHEWS AND MYSELF. PT. WOUNDS ARE CLINICALLY BETTER TODAY. RECOMMENDATIONS: CONTINUE WITH CURRENT PLAN OF CARE. PT. AND STAFF NURSE WERE INSTRUCTED ON PLAN OF CARE.
[2018-05-08 15:39] VITALS: BP 111/70
[2018-05-08 19:52] VITALS: BP 125/55
[2018-05-09 03:19] VITALS: BP 113/63
--- NOTE | 2018-05-09 03:41 | NUR ---
Assumed care at 1845. Pt resting in chair with family memember at bedside. Pt denies pain. Dressing on both feet CDI. She is still needing x3 assistance to bedside commod. She cant stand up for long and has trouble changing her pivot. Possible discharge today to [facility] pending insurance auth. No identified needs at the moment. Will continue to monitor.
[2018-05-09 05:20] LABS: INR 2.1; PROTIME 22.3 Seconds (9.3-11.4)
[2018-05-09 05:56] LABS: CALCIUM 8.7 mg/dL (8.5-10.1); CREATININE 1.2 mg/dL (0.6-1.0); POTASSIUM 4.3 mmol/L (3.5-5.1)
[2018-05-09 08:07] VITALS: BP 115/64
[2018-05-09 14:25] VITALS: BP 147/87
--- NOTE | 2018-05-09 15:06 | NUR ---
CM SPOKE WITH PT'S DTR-IN-LAW YIMI AND SHE INDICATED THAT THEY HAD TOURED BOP YESTERDAY EVENING. SHE INDICATED THAT THEY WERE AGREEABLE WITH PT GOING THERE ONCE SHE WAS MEDICALLY STABLE. CM NOTIFIED PHYSICIAN. CM FOLLOWING INDICATED WITH DC PLANNING.
--- NOTE | 2018-05-09 18:21 | NUR ---
VSS-AFEBRILE. LUNGS CLEAR/DIMINISHED IN ALL MARTINEZ BILATERALLY. PERIODS OF CONFUSION, BUT VERY PLEASANT AND COMPLIANT THROUGH SHIFT. ONLY VOIDED 175ML AFTER LASIX ADMINISTRATION, DR REED NOTIFIED. BILATERAL LOWER EXTREMITY DRESSING CHANGE COMPLETED-TOLERATED WELL. C/O NECK AND UPPER BACK PAIN, PARTIAL RELIEF NOTED WITH PRESCRIBED ORAL MEDICATION AND GENTLE MASSAGE. POOR APPETITE, NEEDS MEAL SET UP AND COAXING TO EAT. NEEDS REMINDERS TO DRINK FLUIDS WELL.
[2018-05-09 19:25] VITALS: BP 116/62
[2018-05-10 02:40] VITALS: BP 108/62
[2018-05-10 06:24] LABS: HEMATOCRIT 30.8 % (37.0-47.0); HEMOGLOBIN 9.9 gm/dL (12.0-15.0); MCH 28.5 pg (26.0-34.0); MCHC 32.2 g/dL (28.0-37.0); MCV 88.6 fL (80.0-100.0); RBC 3.48 mil/uL (4.20-5.00); RDW 21.9 % (10.5-14.5); WBC 14.3 thou/uL (4.0-11.0)
[2018-05-10 06:34] LABS: CALCIUM 8.8 mg/dL (8.5-10.1); CREATININE 1.5 mg/dL (0.6-1.0); POTASSIUM 4.9 mmol/L (3.5-5.1)
[2018-05-10 06:35] LABS: INR 1.8; PROTIME 19.2 Seconds (9.3-11.4)
--- NOTE | 2018-05-10 06:39 | NUR ---
PT STARTED SHIFT IN THE CHAIR AND WAS MOVED BACK INTO BED FOR THE NIGHT. UPON AMBULATING PT BECAME SOA AND OXYGEN LEVELS DROPPED TO 85%. PLACED ON 2L NC AND AFTER RECOVERY PERIOD CAME BACK UP TO 94%. OVERNIGHT PT HAD EPISODE OF INCREASED CONFUSION. WAS YELLING AND FRANTIC AND WAS SPEAKING IN A BABY VOICE SAYING, "MOMMY, STOP IT." VITAL SIGNS TAKEN, HEART RATE 110 AND MORE IRREGULAR THAN BEGINNING OF SHIFT. EKG OBTAINED WHICH SHOWED CONTINUING A-FIB. PT WAS ABLE TO CALM DOWN AND GET BACK TO SLEEP. WENT TO WAKE PT UP TO USE THE BED SIDE COMMODE SHE HAD NOT URINATED SINCE BEFORE BED AND FOUND THAT SHE WAS ONCE AGAIN MORE CONFUSED AND O2 LEVEL HAD DROPPED TO 87% ON 2L NC. INCREASED TO 4L AND ATTEMPTS WERE MADE TO CALM PT. ONCE RECOVERED SHE WAS ABLE TO BE LOWERED BACK TO 2L NC. SPOKE TO DR REED ABOUT THE SHIFT. NEW ORDER RECEIVED FOR A SOFT C-COLLAR TO HELP HOLD PTS HEAD UPRIGHT TO SEE IF THAT HELPS WITH DESATTING EPSIODES.
[2018-05-10 07:21] LABS: BE(vivo) 5.4 mmol/L (-2 to +3); HCO3 27.9 mmol/L (22.0-26.0); PCO2 33.2 mmHg (35.0-45.0); PO2 54.4 mmHg (80.0-100.0); pH 7.543 (7.360-7.450)
--- NOTE | 2018-05-10 08:18 | EKG ---
[address] [address] ELECTROCARDIOGRAM REPORT Name: SANAZ VALERIO Room #: 464-P ADM IN M.R.#: [id number] Admission: 05/03/18 Attend Phys: Greg Ramon MD Discharge: Date of : 35 Report #: [id number] THIS REPORT FOR: //name// [facility] Test Date: 2018-05-10 Test Time: 02:49:12 Pat Name: SANAZ VALERIO Department: Room: 464 Gender: F Transfer Worker: [id number] : 1935 Requested By: Greg Ramon Order Number: [id number] MD: Harris Tamez Measurements Intervals [place] Rate: 102 P: RI: QRS: -26 QRSD: 97 T: 73 QT: 383 QTc: 499 Interpretive Statements Atrial fibrillation Borderline left axis deviation RSR' in V1 or V2, probably normal variant Borderline prolonged QT interval Compared to ECG 03/19/2018 09:36:28 No significant changes Electronically Signed On 05-10-2018 8:17:53 LOCKS TENDER by Harris Tamez [email or web address] <ELECTRONICALLY SIGNED> By: Harris Tamez MD 05/10/18 0817 0249 0249 Harris Tamez MD /EPI
[2018-05-10 08:28] VITALS: BP 102/64
--- NOTE | 2018-05-10 14:43 | NUR ---
ALERT AND ORIENTED TO SITUATION, FORGETFULL. ABLE TO REMEMBER 'S CELL PHONE #. CAROTID COMPLETED TODAY. SEEN BY [facility] BENCH BORING MACHINE OPERATOR, PT WILL LIKELY DC TO SNF. PT DOES NOT CALL APPROPRIATELY. REQUIRES STAFF TO ANTICIPATE HIS NEEDS. FALL PRECAUTIONS IN PLACE. CALL LIGHT IN REACH.
[2018-05-10 14:46] VITALS: BP 109/61
--- NOTE | 2018-05-10 15:46 | NUR ---
ASSUMED CARE AT 0700. ALERT, C/O SHORTNESS OF AIR. ON 3L NC WITH 02SATS 93%-95%. IMPATIENT WITH CARES AND ANXIUOS. MAX ASSIST OF 2-3 FOR TOILETING AND TRANSFER, CONSTIPATED, SMALL AMOUNT OF BM DIGITALLY REMOVED. REFUSES TO WEAR SOFT C-COLAR, WILL HOLD UP HEAD WITH HAND WITH DIFFUCULTY. CALLS APPORPRIEATLEY. SET ASSIST WITH MEALS. FALL PRECAUTIONS IN PLACE. ONCE STABLE WILL DC TO SNF.
--- NOTE | 2018-05-10 16:50 | NUR ---
IF PT IS MRDICALLY STABLE TO DISCHARGE OVER THE WEEKEND CONTACT ADMISSIONS AT [facility] AT FAX ORDERS TO .
[2018-05-10 21:00] VITALS: BP 110/62
[2018-05-11 04:41] VITALS: BP 88/65
--- NOTE | 2018-05-11 04:51 | NUR ---
Assumed care with patient sitting on the chair. Patient refused to be transferred to the bed and prefers to be on the chair. Assessment as documented. Complaint of pain on the neck. Prn meds for pain given. Patient agreed to stand up to get her dressing changed on the buttom. Patient's relative helpful of giving care to the patient. Fall precaution in place. chair alarm on. FF up POC.
[2018-05-11 05:56] LABS: CALCIUM 9.8 mg/dL (8.5-10.1); CREATININE 1.8 mg/dL (0.6-1.0)
[2018-05-11 06:00] LABS: INR 1.6; PROTIME 16.5 Seconds (9.3-11.4)
[2018-05-11 06:09] LABS: POTASSIUM 5.5 mmol/L (3.5-5.1)
--- NOTE | 2018-05-11 07:55 | NUR ---
07:07-07:12>Dr Ramon called. VS relayed. K, Glucose, INR result relayed. Informed him that I was trying to give the apple juice to the patient, but she refused. I informed him that some of the Lactulose q 2 hours meds was not taken as it took time for her to take the meds. I also informed him that patient was pale and cool to touch and drowsy. He ordered the following: hold lasix, d/c potassium, change sliding scale from moderate to low sliding scale. He said to try to give the apple juice and let the patient eat breakfast once more awake. If not may give glucagon per protocol. Readback done and orders entered. 07:36>during bedside shift change patient was noted to be unresponsive. Compression started. Code blue done. 07:40>called Dr Ramon. I informed him of the ongoing code. Relayed result of CXR that was done this morning. Dr Noonan was able to talk to Dr Ramon and informed him that resuscitation ended at 0749. Dr Ramon told me that he will call the patient's relative.
--- NOTE | 2018-05-11 14:44 | NUR ---
PT AT [address] HASTINGS. ER PHYSICIAN. FAMILY AND ADMITTING DOCTOR SHARP NOTIFIED. FAMILY COLLECTED ALL BELONGINGS. NOT A ONLINE MERCHANDISING MANAGER CASE. SECURITY NOTIFIED. PATIENT TRANFERED TO [facility] AT THIS TIME.
== END 2018-05-11 14:49 | DRG 917 ==
LOC: 4W 15:17
PROVIDERS: ADMIT Internal Medicine
DX: T38.0X5A Adverse effect of glucocorticoids and synthetic analogues, initial encounter (principal); J18.9 Pneumonia, unspecified organism; J96.01 Acute respiratory failure with hypoxia; E43 Unspecified severe protein-calorie malnutrition; F23 Brief psychotic disorder; J90 Pleural effusion, not elsewhere classified; I50.32 Chronic diastolic (congestive) heart failure; I13.0 Hypertensive heart and chronic kidney disease with heart failure and stage 1 through stage 4 chronic kidney disease, or unspecified chronic kidney disease; M06.9 Rheumatoid arthritis, unspecified; K21.9 Gastro-esophageal reflux disease without esophagitis; G89.29 Other chronic pain; M54.9 Dorsalgia, unspecified; Z96.659 Presence of unspecified artificial knee joint; J47.9 Bronchiectasis, uncomplicated; N18.9 Chronic kidney disease, unspecified; E03.9 Hypothyroidism, unspecified; I48.2 Chronic atrial fibrillation; G72.9 Myopathy, unspecified; B37.9 Candidiasis, unspecified; R41.0 Disorientation, unspecified; H54.8 Legal blindness, as defined in USA; J84.89 Other specified interstitial pulmonary diseases; S90.822A Blister (nonthermal), left foot, initial encounter; F29 Unspecified psychosis not due to a substance or known physiological condition; S90.422A Blister (nonthermal), left great toe, initial encounter; S90.421A Blister (nonthermal), right great toe, initial encounter; X58.XXXA Exposure to other specified factors, initial encounter; Y93.89 Activity, other specified; Y92.89 Other specified places as the place of occurrence of the external cause; Y99.8 Other external cause status; L89.320 Pressure ulcer of left buttock, unstageable; I25.2 Old myocardial infarction; Z95.5 Presence of coronary angioplasty implant and graft; Z90.49 Acquired absence of other specified parts of digestive tract; Z88.2 Allergy status to sulfonamides; Z98.49 Cataract extraction status, unspecified eye; E11.22 Type 2 diabetes mellitus with diabetic chronic kidney disease
CPT/HCPCS: 10047